=== PATIENT | male | born 1955 | race Two or more races ===

== ENCOUNTER → 2024-10-28 | Outpatient (CLI) | payer OTHER, MEDICAID, SELFPAY ==
--- NOTE | 2024-10-28 15:09 | XR_ITS ---
Examination: Shoulder,left, 3 views Technique: Shoulder AP internal rotation, AP external rotation, Y view shoulder, 3 views Exam date and time :October 28, 2024 1550 hours INDICATIONS: Patient fell one month ago with injury to the shoulder, shoulder pain. FINDINGS: Moderate osteopenia. No shoulder fracture or dislocation Mild narrowing glenohumeral joint IMPRESSION: No shoulder fracture or dislocation
== END | disposition home or self-care (01) ==
LOC: CDIM 14:29
PROVIDERS: PCP Family Medicine; Referring Provider Family Medicine; Visit Provider Family Medicine
DX: S49.92XA Unspecified injury of left shoulder and upper arm, initial encounter (principal); W19.XXXA Unspecified fall, initial encounter
CPT/HCPCS: 73030

== ENCOUNTER 2025-02-17 12:45 | Inpatient (IN) | payer OTHER, MEDICAID, MEDICARE, SELFPAY ==
[2025-02-17 13:22] VITALS: BP 145/78; PULSE 80; RESP 20; TEMP 36.9; O2SAT 99
--- NOTE | 2025-02-17 13:27 | XR_ITS ---
Examination: CT abdomen and pelvis without contrast. Coronal 3-D reconstructions. Sagittal 2-D reconstructions. Date and time of exam:February 17, 2025 1328 hours INDICATIONS: Rectal pain beginning 3 days ago COMPARISON: July 09, 2014 CTDI: vol (mGy): 9.43 DLP: (mGycm): 604 Technique: Axial images of the abdomen have been obtained, 3 mm slice thickness Intravenous contrast material has not been administered. Low dose protocols were performed. One or more of the following dose reduction techniques were used; automated exposure control, adjustment of the mA and/or KV according to patient size, use of iterative reconstruction technique. Findings: No focal liver or splenic lesions Gallstones No pancreatic or adrenal mass No renal or ureteral calculi, no hydronephrosis Aorta normal size No periappendiceal inflammatory change Colonic diverticulosis, no diverticulitis Urinary bladder wall is thickened up to 4 mm No significant prostatomegaly Diffuse thickening of the rectal wall with perirectal inflammatory change Moderate osteopenia IMPRESSION: Diffuse thickening of the rectal wall with perirectal inflammatory change, differential would include proctitis, rectal tumor not excluded, recommend direct inspection
--- NOTE | 2025-02-17 13:27 | PD.EDRME ---
Rapid Medical Screening Exam RME Arrival date/time: 02/17/25 12:45 69-year-old male with no known medical history presents to the emergency room with a chief complaint of rectal pain and bleeding x 4 days. I have greeted and performed a focused initial assessment of this patient. A comprehensive ED assessment and evaluation of the patient, analysis of all test results, and completion of the medical decision making process will be conducted by additional ED providers. Chief Complaint: General Adult/Misc Complain Time Seen by Provider: 02/17/25 13:07 Vital signs: Vital Signs Temperature 98.5 F 02/17/25 13:22 Pulse Rate 80 02/17/25 13:22 Respiratory Rate 20 02/17/25 13:22 Blood Pressure 145/78 H 02/17/25 13:22 Pulse Oximetry (%) 99 02/17/25 13:22 Oxygen Delivery Method Room Air 02/17/25 13:22 Vital signs reviewed by provider: No
[2025-02-17 13:51] LABS: Basophils % (Auto) 0 % (0-2.5); Eosinophils # (Auto) 0.1 Thou/mm3 (0.0-0.5); Eosinophils % (Auto) 0 % (0-10); Hematocrit 42.6 % (41.0-53.0); Hemoglobin 14.6 g/dL (13.5-16.0); Immature Granulocytes % (Auto) 0 % (0-0); Immature Granulocytes Auto 0.07 Thou/mm3 (0.00-0.00); Lymphocytes # (Auto) 1.9 Thou/mm3 (1.0-4.8); Lymphocytes % (Auto) 12 % (10-50); Mean Corpuscular HGB Conc 34.3 g/dl (31.0-37.0); Mean Corpuscular Hemoglobin 30.8 pg (25.0-35.0); Mean Corpuscular Volume 90 fL (80-100); Monocytes # (Auto) 1.3 Thou/mm3 (0.0-0.8); Monocytes % (Auto) 8 % (0-12); Neutrophils # (Auto) 12.8 Thou/mm3 (1.8-7.7); Neutrophils % (Auto) 79 % (37-80); Nucleated Red Blood Cell % 0 /100 WBC (0); Platelet Count 270 Thou/mm3 (140-440); Red Blood Count 4.74 Miln/mm3 (4.50-5.90); White Blood Count 16.2 Thou/mm3 (3.8-10.6)
[2025-02-17 14:19] LABS: Alanine Aminotransferase 21 U/L (10-49); Albumin, Serum 4.7 gm/dL (3.4-4.8); Albumin/Globulin Ratio 1.7 (1.2-2.2); Alkaline Phosphatase 106 U/L (46-116); Anion Gap 12 (7-16); Aspartate Amino Transferase 14 U/L (0-34); BUN/Creatinine Ratio 15 Ratio (12-20); Bilirubin,Total 1.2 mg/dL (0.3-1.2); Blood Urea Nitrogen 16 mg/dL (9-23); Calcium 8.8 mg/dL (8.3-10.6); Calcium (Corrected) 8.8 mg/dL (8.5-10.1); Chloride 102 mMol/L (98-107); Creatinine (Component) 1.1 mg/dL (0.6-1.3); Globulin 2.8 gm/dL (2.3-3.5); Glucose 168 mg/dL (74-106); Lipase 36 U/L (12-53); Osmolality,Calculated 280 (275-295); Potassium 4.2 mMol/L (3.4-5.1); Sodium 138 mMol/L (136-145); Total Protein 7.5 gm/dL (5.7-8.2); eGFR > 60 See Note
[2025-02-17 15:29] LABS: Collection Type, Urine Clean Catch
[2025-02-17 15:38] LABS: Bilirubin,Urine Negative (Negative); Blood,Urine 1+ (Negative); Clarity,Urine Clear (Clear/Hazy); Color,Urine Yellow (Lt Yel-Yel); Glucose, Urine 2+ (Negative); Ketones,Urine Negative (Negative); Leukocyte Esterase,Urine Negative (Negative); Nitrite,Urine Negative (Negative); Protein,Urine 1+ (Neg - Trace); RBC,Urine 4 /hpf (0-3); Specific Gravity,Urine 1.023 (1.001-1.035); Squamous Epithelial Cell,Urine < 1 /hpf (0-5); Urobilinogen,Urine Negative mg/dL (0.0-1.0); WBC,Urine 2 /hpf (0-5)
[2025-02-17 18:10] VITALS: BP 103/68; PULSE 99; RESP 18; TEMP 37.7; O2SAT 96
--- NOTE | 2025-02-17 18:28 | PD.EDMALE ---
ED Male Genitalurinary RME/HPI General Chief complaint: General Adult/Misc Complain Stated complaint: RECTAL PAIN X 4 DAYS Time Seen by Provider: 02/17/25 13:07 Arrival date/time: 02/17/25 12:45 RME / HPI RME / HPI Narrative: 02/17/25 12:45 69-year-old male with no known medical history presents to the emergency room with a chief complaint of rectal pain and bleeding x 4 days. I have greeted and performed a focused initial assessment of this patient. A comprehensive ED assessment and evaluation of the patient, analysis of all test results, and completion of the medical decision making process will be conducted by additional ED providers. This section includes all my notes and documentations, including HPI, PE, and ED course. Jefferson Guallpa MD HPI: 69 y/o male presents to ED c/o rectal pain x 3 days. Patient describes rectum as feeling heavy and not being able to walk due to pain. Equivocal subjective fever. No abdominal pain. Eating normally. Occasional nausea. No other complaints. ROS: All negative except as documented in HPI. Physical Exam: General: Alert and oriented. No acute distress when remaining still. Eyes: Conjunctivae and lids clear. ENT: No nasal congestion. Neck: Supple. Heart: RRR. Lungs: No respiratory distress. Good air movement. No rhonchi, wheezing, rales. Abdomen: Soft and nontender. Normal bowel sounds. No distension. No rebound or guarding. Skin: Warm and dry. Neuro: Alert and oriented X 3. Rectal: Normal external exam. Digital exam is normal with no hemorrhoids or masses. I reviewed all diagnostic test results. My review of the CT report is diffuse thickening of the rectal wall with perirectal inflammatory change, differential would include proctitis, rectal tumor not excluded. Blood tests and urine tests remarkable for WBC 16.2. At this point, diagnoses include Proctitis. Treatment here included Zofran, Metronidazole, Ciprofloxacin, Tylenol with Codeine Significant improvement noted. Recommended more outpatient care. Based on my best medical judgment, made decision no further evaluation or treatment indicated at this time. Patient understands and agrees to the discharge instructions customized and printed, see below. Discharge Instructions from Dr. Guallpa printed for you: 1. We are extremely sorry you waited so long for your care. You presented around 1 PM and I came to work at 6 PM. Previous provider entered orders for diagnostic tests. 2. After exam and reviewing the diagnostic test results, there is no emergency such as appendicitis needing urgent surgery. Or any condition needing emergent colonoscopy. 3. Your symptoms are due to proctitis, infection/inflammation of the rectum. 4. Take Cipro and Flagyl for the infection. Prednisone to decrease inflammation. Zofran for nausea/vomiting. Tylenol with codeine for severe pain. 5. See a private doctor outside the ER on 02/19/2025 for recheck and further care. To make sure there is no serious intra-abdominal condition, ask for help with more investigation not available here in the ER. Such as EGD or scoping the stomach, colonoscopy or scoping the colon, and referral to see human resources benefits assistant. Ask to review all test results and official radiology reports, to make sure you receive all necessary follow-ups and monitoring. 6. Seek immediate medical care with worsening or with any concerns. Jefferson Guallpa MD Related Data Previous Rx's ?Medication ?Instructions ?Recorded acetaminophen 300 mg-codeine 30 mg 2 tab PO Q8H PRN pain #20 tabs 02/17/25 tablet ciprofloxacin HCl 500 mg tablet 500 mg PO BID #20 tabs 02/17/25 (Cipro) metronidazole 500 mg tablet 500 mg PO BID 10 days #20 tabs 02/17/25 ondansetron 4 mg disintegrating 4 mg PO TID PRN nausea and 02/17/25 tablet vomiting 30 days #10 tabs prednisone 50 mg tablet 50 mg PO QDAY 5 days #5 tabs 02/17/25 Allergies Allergy/AdvReac Type Severity Reaction Status Date / Time No Known Allergies Allergy Unverified 02/17/25 18:44 Review of Systems Review of Systems Systems Reviewed: All systems reviewed, normal except as documented Past Medical History Social History SMOKING STATUS: Never smoker ED Exam Narrative Physical exam: Refer to HPI above Course Quality Measures none Orders Category Date Time Status CT abdomen pelvis wo con Stat Exams 02/17/25 13:27 Completed CBC Stat Lab 02/17/25 13:41 Completed CMP [Comprehensive Metabolic Panel] Stat Lab 02/17/25 13:41 Completed Lipase Stat Lab 02/17/25 13:41 Completed UA [Urinalysis] Stat Lab 02/17/25 15:19 Completed Urine Culture Stat Lab 02/17/25 15:19 Received ACETAMINOPHEN w/COD 300-30 [Tylenol w/Cod #3] Med 02/17/25 18:42 Discontinued 2 tab PO X1 ONE Ciprofloxacin HCl [Ciprofloxacin] Med 02/17/25 18:42 Discontinued 500 mg PO X1 ONE Ondansetron Odt [Zofran Odt] Med 02/17/25 18:42 Discontinued 4 mg PO X1 ONE metroNIDAZOLE [Flagyl] Med 02/17/25 18:42 Discontinued 500 mg PO X1 ONE Vital Signs Vital signs: Vital Signs Temperature 98.5 F 02/17/25 13:22 Pulse Rate 80 02/17/25 13:22 Respiratory Rate 20 02/17/25 13:22 Blood Pressure 145/78 H 02/17/25 13:22 Pulse Oximetry (%) 99 02/17/25 13:22 Oxygen Delivery Method Room Air 02/17/25 13:22 Urogenital - Male MDM Narrative MDM Narrative:: Scribe Attestation: IOdalis, am scribing for and in the presence of Dr. Guallpa. Provider Notation: Although this document has been carefully reviewed, there may still be some phonetic and other typographical errors.? These errors are purely grammatical due to imperfections in the software program and should not be construed in any way to? compromise the substance of the patient's medical care during this visit. 69 y/o male presents to ED c/o rectal pain, vomiting, and dizziness x 3 days. Patient describes rectum as feeling heavy and not being able to walk. Patient's temperature has been staying down in the low 90's. Denies cough, fever, or abdominal pain. No other complaints. Patient data External records reviewed:: [facility] previous records (No prior ED records available for review.) Clinical information provided by:: patient and family (Daughter) Social determinants that could affect healthcare access:: none Patient has the following chronic illnesses:: None reported How is presenting disease/condition affected by chronic disease/condition?: no chronic disease Evaluation data The following diagnostics were reviewed and interpreted by me:: lab results and radiology exam(s) Lab and/or radiology exams considered but not ordered:: None Interpretation Summary: I reviewed all diagnostic test results. My review of the CT report is diffuse thickening of the rectal wall with perirectal inflammatory change, differential would include proctitis, rectal tumor not excluded. Blood tests and urine tests remarkable for WBC 16.2. Medications / Prescriptions Medications or Prescriptions considered but not ordered:: None Medication administrations:: Medication Administration History Discontinued Medications Acetaminophen/Codeine Phosphate (Acetaminophen W/Cod 300-30 Tablet) 2 tab PO X1 ONE Stop: 02/17/25 18:43 Ciprofloxacin (Ciprofloxacin Hcl 250 Mg Tablet) 500 mg PO X1 ONE Stop: 02/17/25 18:43 Metronidazole (Metronidazole 250 Mg Tablet) 500 mg PO X1 ONE Stop: 02/17/25 18:43 Ondansetron HCl (Ondansetron Odt 4 Mg Tabrap) 4 mg PO X1 ONE; Protocol Stop: 02/17/25 18:43 Zofran, Metronidazole, Ciprofloxacin, Tylenol with Codeine Consultations Consultation(s) initiated? (list below): No Diagnosis Urogenital Male Differential Diagnosis: urinary tract infection, prostatitis and other (Anal fissure, Hernia, Anal fistula, hemorrhoids) Most likely diagnosis given after review of the tests above:: Proctitis Admission Indicated Admission indicated?: not indicated Explain why admission is indicated or not indicated:: With significant improvement, there was no indication for admission. Admission Request Was there a request for admission?: No Disposition Plan Disposition Plan: Discharge Discharge Attestation Discharge Attestation: The patient and all family members were given an opportunity to ask questions and understood the discharge instructions. Discharge instructions specifically effects, indications for sooner follow up or return to the emergency department, and the expected course of current diagnosis. Patient condition: Stable Discharge Plan Plan Patient Disposition: HOME (Self Care) Prescriptions/Referrals Prescriptions/Med Rec: New metronidazole 500 mg tablet 500 mg PO BID 10 Days Qty: 20 0RF acetaminophen-codeine 300-30 mg tablet 2 tab PO Q8H MDD 6 PRN (Reason: pain) Qty: 20 0RF ciprofloxacin HCl [Cipro] 500 mg tablet 500 mg PO BID Qty: 20 0RF ondansetron 4 mg tablet,disintegrating 4 mg PO TID PRN (Reason: nausea and vomiting) 30 Days Qty: 10 0RF prednisone 50 mg tablet 50 mg PO QDAY 5 Days Qty: 5 0RF Referrals: No Primary/Family,Physician [Primary Care Provider] - In 1 week Problem List Clinical Impression: Proctitis Patient/Caregiver Discharge Instructions Discharge Activity: activity as tolerated Education Materials: ED Crohn's Disease, ED Ulcerative Colitis Additional Instructions: Discharge Instructions from Dr. Guallpa printed for you: 1. We are extremely sorry you waited so long for your care. You presented around 1 PM and I came to work at 6 PM. Previous provider entered orders for diagnostic tests. 2. After exam and reviewing the diagnostic test results, there is no emergency such as appendicitis needing urgent surgery. Or any condition needing emergent colonoscopy. 3. Your symptoms are due to proctitis, infection/inflammation of the rectum. 4. Take Cipro and Flagyl for the infection. Prednisone to decrease inflammation. Zofran for nausea/vomiting. Tylenol with codeine for severe pain. 5. See a private doctor outside the ER on 02/19/2025 for recheck and further care. To make sure there is no serious intra-abdominal condition, ask for help with more investigation not available here in the ER. Such as EGD or scoping the stomach, colonoscopy or scoping the colon, and referral to see human resources benefits assistant. Ask to review all test results and official radiology reports, to make sure you receive all necessary follow-ups and monitoring. 6. Seek immediate medical care with worsening or with any concerns. Instrucciones de hernandez del Dr. Guallpa, impresas para usted: 1. Lamentamos mucho que haya esperado tanto tiempo para recibir atenci?n. Se present? alrededor de la 1 p. m. y yo llegu? a trabajar a las 6 p. m. El m?dico anterior solicit? pruebas diagn?sticas. 2. Tras el examen y la revisi?n de los resultados de las pruebas diagn?sticas, no se observa ninguna emergencia, lona apendicitis que requiera cirug?a urgente, ni ninguna afecci?n que requiera roxana colonoscopia de emergencia. 3. [place] s?ntomas se deben a proctitis o infecci?n/inflamaci?n del recto. 4. [place] Ciprofloxacino y Flagyl para la infecci?n. Prednisona para disminuir la inflamaci?n. Zofr?n para las n?useas/v?mitos. Tylenol con code?na para el dolor intenso. 5. Consulte con un m?dico privado fuera de urgencias el 19/02/2025 para roxana revisi?n y atenci?n adicional. Para asegurarse de que no haya roxana afecci?n intraabdominal grave, solicite ayuda con otras pruebas que no est?n disponibles en urgencias. [place] roxana endoscopia estomacal (EGD) o roxana endoscopia g?strica, roxana colonoscopia o roxana endoscopia de colon, y la derivaci?n a un gastroenter?logo. Solicite la revisi?n de todos los resultados de las pruebas y los informes radiol?gicos oficiales para asegurarse de recibir todos los seguimientos y la monitorizaci?n necesarios. 6. Busque atenci?n m?dica inmediata si presenta empeoramiento o cualquier inquietud. Print Language: Bel[place]ian Stand Alone Forms: [employer] Info., Patient Portal Info Letter
[2025-02-17] MEDS: ONDANSETRON ODT 4 MG TABRAP PO (18:49)
[2025-02-17] MEDS: ACETAMINOPHEN w/COD 300-30 TABLET 2 TAB PO (18:50)
[2025-02-17] MEDS: CIPROFLOXACIN HCL 250 MG TABLET 500 MG PO (18:52)
[2025-02-17] MEDS: metroNIDAZOLE 250 MG TABLET 500 MG PO (18:55)
[2025-02-17] MEDS: SODIUM CHLORIDE 0.9% 1000 ML 1,000 ML 999 ML IV (19:08)
[2025-02-17 19:55] VITALS: BP 146/80; PULSE 99; RESP 18; TEMP 39.1; O2SAT 96
[2025-02-17 20:07] VITALS: TEMP 39.1
[2025-02-17] MEDS: KETOROLAC INJ 30 MG/ML VIAL IVP (20:07)
[2025-02-17] MEDS: MethylPREDNISolone SOD SUCC 62.5 MG/ML 2ML VIAL 125 MG IVP (20:07)
--- NOTE | 2025-02-17 20:15 | PD.EDADDENDU ---
Emergency Room Addendum Addendum Narrative: After I officially discharged the patient, patient developed a fever of 102.3 ?F. I discussed the case with our polysomnography technologist and our hospitalist.? About the presentation and exam and diagnostics and treatments here.? And need of further care in the hospital.? Will accept the patient. Jefferson Guallpa MD
--- NOTE | 2025-02-17 20:55 | PD.RESHP ---
Documentation for date of: 02/17/25 HPI History of Present Illness Chief complaint: Rectal Pain History of present illness: Mr. Donald is a 69-year-old male with past medical history of type 2 diabetes, hypertension, hyperlipidemia, chronic joint pain who presented to [facility] with a chief complaint of rectal pain. Patient states that he began to feel ill last Saturday with subjective fevers and chills along with pain being seated. He states that he saw his primary care physician Dr. Santillan who prescribed him ciprofloxacin but he continued to have subjective fevers and chills with decreased p.o. intake. He also endorsed weakness and dizziness. He denied any recent sick contacts, recent travel, changes in diet, changes in water sources, any previous history of cancer in his family. He states that his last colonoscopy was more than 10 years ago and was normal. He also states that he is having some pain near his penile region when he experiences discomfort such as cough or throat clearing. He denies any chest pain, shortness of breath, headache, burning micturition, or any other associated symptoms. 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 Denies any recreational drug use or alcohol use. Does not require assistance with ADLs Family history: None relevant family history other than diabetes in both parents and arthritis in mom Allergies: No known drug allergies ED vitals: BP 146/80, pulse 99, RR 18, temp 102.3, O2 sat 96 on room air ED labs: WBC 16.2, absolute neutrophil count 12.8 thousand, glucose 168. U/A: 1+ protein, 2+ glucose, 1+ blood and 4 RBCs ED imaging: CT abdomen pelvis reveals diffuse thickening of the rectal wall with perirectal inflammatory change with concern for proctitis ED management:Zofran 4 mg p.o. x 1, acetaminophen codeine 2 tabs p.o. x 1, Cipro and Flagyl 500 mg p.o. x 1, NS 1 L bolus methylprednisolone 125 mg IV push x 1, ketorolac 30 mg IV push x 1, Patient is to be admitted to [facility] for the management of proctitis likely infectious in etiology Review of Systems Review of Systems Systems Reviewed: All systems reviewed, normal except as documented Exam Vital Signs Temp Pulse Resp BP Pulse Ox O2 Del Method 102.3 F H 99 18 146/80 H 96 Room Air 02/17/25 20:07 02/17/25 19:55 02/17/25 19:55 02/17/25 19:55 02/17/25 19:55 02/17/25 19:55 Narrative Exam GENERAL: Alert and oriented x 3. Turkmen-speaking with mild acute distress. Well-nourished. EYES: EOMI. Anicteric. HEENT: Moist mucous membranes. No scleral icterus. No cervical lymphadenopathy. LUNGS: Clear to auscultation bilaterally. No accessory muscle use. CARDIOVASCULAR: Regular rate and rhythm. No murmur. No JVD. ABDOMEN: Soft, non-tender and non-distended. No palpable masses. EXTREMITIES: All 4 extremeties intact. No edema. Nontender. SKIN: No rashes or lesions. Warm. NEUROLOGIC: No focal neurological deficits. CN II-XII grossly intact, but not individually tested. PSYCHIATRIC: Cooperative. Appropriate mood and affect. Results: Labs 02/17/25 13:41 02/17/25 13:41 Labs: Short CBC 02/17/25 Range/Units 13:41 WBC 16.2 H (3.8-10.6) Thou/mm3 Hgb 14.6 (13.5-16.0) g/dL Hct 42.6 (41.0-53.0) % Plt Count 270 (140-440) Thou/mm3 BMP 02/17/25 13:41 Sodium 138 Potassium 4.2 Chloride 102 Carbon Dioxide 24.0 BUN 16 Creatinine 1.1 Glucose 168 H Calcium 8.8 Liver Function 02/17/25 Range/Units 13:41 Total Bilirubin 1.2 (0.3-1.2) mg/dL AST 14 (0-34) U/L ALT 21 (10-49) U/L Alkaline Phosphatase 106 (46-116) U/L Albumin 4.7 (3.4-4.8) gm/dL Urine 02/17/25 Range/Units 15:19 Urine Color Yellow (Lt Yel-Yel) Urine Clarity Clear (Clear/Hazy) Urine pH 6.0 (5.0-7.0) Ur Specific [place] 1.023 (1.001-1.035) Urine Protein 1+ A (Neg - Trace) Urine Glucose (UA) 2+ A (Negative) Quality Measures Quality Measures none Advance care planning discussed with:: patient Medications Home Medications and Allergies Allergies Allergy/AdvReac Type Severity Reaction Status Date / Time No Known Allergies Allergy Unverified 02/17/25 18:44 Visit Medications Acetaminophen (Acetaminophen 325 Mg Tablet) 650 mg PO Q6H PRN PRN Reason: Fever >101.5 Stop: 03/19/25 20:49 Acetaminophen (Acetaminophen 325 Mg Tablet) 650 mg PO Q6H PRN PRN Reason: PAIN SCALE 1-3 (mild Stop: 03/19/25 20:49 Hydrocodone Bitart/Acetaminophen (Hydrocodone/Apap 5/325 Tablet) 1 tab PO Q4HR PRN PRN Reason: PAIN SCALE 4-10(Mod-Sev Stop: 02/22/25 20:49 Enoxaparin Sodium (Enoxaparin Sod Inj 40 Mg/0.4 Ml Syringe) 40 mg SC QDAY DEDE Stop: 03/04/25 08:59 Ciprofloxacin/Dextrose (Cipro Ivpb) 200 mg in 100 mls @ 100 mls/hr IV Q12HR DEDE Stop: 02/25/25 08:59 Metronidazole (Flagyl 500 Mg Iv) 500 mg in 100 mls @ 200 mls/hr IV Q8HR DEDE Stop: 02/24/25 20:07 Lactated Ringer's (Lactated Ringers) 1,000 mls @ 75 mls/hr IV .[id number] DEDE Stop: 03/19/25 20:59 Lactated Ringer's (Lactated Ringers) 1,000 mls @ 999 mls/hr IV .Q1H1M ONE Stop: 02/17/25 21:53 Ondansetron HCl (Ondansetron Inj 2 Mg/Ml Inj 2 Ml) 4 mg IVP Q6H PRN; Protocol PRN Reason: NAUSEA OR VOMITING Stop: 03/19/25 20:49 Pantoprazole Sodium (Pantoprazole Inj 40 Mg Vial) 40 mg IVP QDAY DEDE Stop: 03/20/25 08:59 Discontinued Medications Acetaminophen/Codeine Phosphate (Acetaminophen W/Cod 300-30 Tablet) 2 tab PO X1 ONE Stop: 02/17/25 18:43 Last Admin: 02/17/25 18:50 Dose: 2 tab Ciprofloxacin (Ciprofloxacin Hcl 250 Mg Tablet) 500 mg PO X1 ONE Stop: 02/17/25 18:43 Last Admin: 02/17/25 18:52 Dose: 500 mg Sodium Chloride (Ns) 1,000 mls @ 999 mls/hr IV .Q1H1M ONE Stop: 02/17/25 20:01 Last Infusion: 02/17/25 20:02 Dose: Infused Ketorolac Tromethamine (Ketorolac Inj 30 Mg/Ml Vial) 30 mg IVP X1 ONE Stop: 02/17/25 19:57 Last Admin: 02/17/25 20:07 Dose: 30 mg Methylprednisolone Sodium Succinate (Methylprednisolone Sod Succ 62.5 Mg/Ml 2ml Vial) 125 mg IVP X1 ONE Stop: 02/17/25 19:57 Last Admin: 02/17/25 20:07 Dose: 125 mg Metronidazole (Metronidazole 250 Mg Tablet) 500 mg PO X1 ONE Stop: 02/17/25 18:43 Last Admin: 02/17/25 18:55 Dose: 500 mg Ondansetron HCl (Ondansetron Odt 4 Mg Tabrap) 4 mg PO X1 ONE; Protocol Stop: 02/17/25 18:43 Last Admin: 02/17/25 18:49 Dose: 4 mg Assessment & Plan Plan #Rectal proctitis #Leukocytosis Patient has been complaining of rectal pain for more than 1 week and failed outpatient antibiotic therapy with ciprofloxacin solo agent GI consulted who recommended that the patient is admitted for observation and to obtain a FOBT along with further stool studies including stool calprotectin and stool culture/WBCs Patient has a left shift with absolute neutrophil count of 12.8 thousand and a fever of 102.3 with only source being the rectal proctitis noted on digital rectal exam and CT abdomen pelvis Will initiate the patient on ciprofloxacin and Flagyl. Patient received 125 mg of methylprednisolone in the ED IV push x 1 Will give adequate IV fluid resuscitation Pain management in place Clear liquid diet Wait for FOBT, consider colonoscopy if positive. If patient does not receive inpatient colonoscopy recommend outpatient follow-up with colonoscopy #Type 2 diabetes Patient takes metformin 1000 mg p.o. twice daily Will initiate the patient on sliding scale insulin #Hypertension #Proteinuria Patient takes enalapril 2.5 mg p.o. daily Will resume the patient's home medication #Hyperlipidemia Resume patient's simvastatin 20 mg p.o. at bedtime #Osteoarthritis Patient takes meloxicam 15 mg p.o. twice daily Will hold the medication currently and order inpatient pain regimen Health Maintenance: DVT prophylaxis: Lovenox 40 mg subcutaneous daily GI prophylaxis: Protonix 40 IV daily Diet: Clear liquid diet Mike: Not indicated Lines: Peripheral IVs Supplemental O2: None CODE STATUS: Full code Disposition: Admitted to observation status on MedSurg for further management of rectal proctitis Plan of care discussed with supervising attending Valarie Moreland M.D. PGY-3 Attending Provider Attestation/Addendum I have examined the patient, reviewed labs and imaging findings, discussed the case with the resident(s), and reviewed entered orders. I agree with the plan of care as outlined in this note, with these additional summaries/recommendations: After examination of the patient and review of the clinical data, I feel that this patient needs admission to the hospital for further treatment and evaluation. Patient is a 69-year-old male with a medical history of hyperlipidemia, diabetes mellitus type 2, primary hypertension, and arthritis who presents to [facility] emergency department on 02/17/2025 with chief complaints of rectal pain and subjective fevers. Patient and daughter seen at bedside. Nurse had just taken patient's temperature and Tmax 102.3 Fahrenheit. Discussed with patient that CT abdomen and pelvis showed diffuse thickening of the rectal wall with perirectal inflammatory changes with differentials including proctitis (infectious vs inflammatory) vs rectal tumor. Given that patient has fever and leukocytosis to 16.2 most likely etiology is infectious. Case discussed with gastroenterology who recommends admission for IV antibiotics. Order blood cultures. Order stool studies. Order FOBT. Start Clear liquid diet. Pain management as needed. Patient denies any recent travel, sick contacts, and no exposure to fresh water lakes. He reports his last colonoscopy was over 10 years ago and was normal at that time. He denies any family history of colon cancer. Start insulin sliding scale for diabetes mellitus type 2 with Accu-Cheks. Order A1c. Resume home antihypertensives and statin as tolerated. Patient and daughter updated on the plan and in agreement. All questions answered to satisfaction. Please see residents note for additional details and management. Dr. Sherman MD
[2025-02-17 20:56] VITALS: TEMP 37.2
[2025-02-17] MEDS: RINGERS LACTATED 1000 ML 1,000 ML 999 ML IV (20:58)
[2025-02-17 21:22] LABS: Lactate (Lactic Acid) 1.5 mMol/L (0.4-2.0)
[2025-02-17] MEDS: metroNIDAZOLE/NS 500 MG IVPB 500 MG/100 ML BAG 200 MG IV (21:22)
[2025-02-17 21:23] LABS: Sed Rate (ESR) 51 mm/hr (0-20)
[2025-02-17 21:47] LABS: C-Reactive Protein 13.8 mg/dL (0.0-0.9); Procalcitonin 0.09 ng/ml (0.0-0.49)
[2025-02-17 22:13] VITALS: BP 139/77; PULSE 78; RESP 26; TEMP 36.7; O2SAT 96
[2025-02-17 22:24] VITALS: BMI 31.8
[2025-02-17 23:15] VITALS: BMI 31.9
[2025-02-18] VITALS (7 sets, daily range): BP systolic 109–136; BP diastolic 56–74; PULSE 63–77; RESP 18; TEMP 35.7–36.9; O2SAT 94–99; BMI 32.7
[2025-02-18] MEDS: RINGERS LACTATED 1000 ML 1,000 ML 75 ML IV ×2 (00:08→11:46)
[2025-02-18] MEDS: metroNIDAZOLE/NS 500 MG IVPB 500 MG/100 ML BAG 200 MG IV ×3 (05:41→22:09)
[2025-02-18 06:16] LABS: Basophils % (Auto) 0 % (0-2.5); Eosinophils % (Auto) 0 % (0-10); Hematocrit 37.9 % (41.0-53.0); Hemoglobin 13.2 g/dL (13.5-16.0); Immature Granulocytes % (Auto) 2 % (0-0); Immature Granulocytes Auto 0.24 Thou/mm3 (0.00-0.00); Lymphocytes # (Auto) 0.8 Thou/mm3 (1.0-4.8); Lymphocytes % (Auto) 5 % (10-50); Mean Corpuscular HGB Conc 34.8 g/dl (31.0-37.0); Mean Corpuscular Hemoglobin 31.2 pg (25.0-35.0); Mean Corpuscular Volume 90 fL (80-100); Monocytes # (Auto) 0.2 Thou/mm3 (0.0-0.8); Monocytes % (Auto) 2 % (0-12); Neutrophils # (Auto) 14.5 Thou/mm3 (1.8-7.7); Neutrophils % (Auto) 92 % (37-80); Nucleated Red Blood Cell % 0 /100 WBC (0); Platelet Count 248 Thou/mm3 (140-440); Red Blood Count 4.23 Miln/mm3 (4.50-5.90); White Blood Count 15.8 Thou/mm3 (3.8-10.6)
[2025-02-18 06:20] LABS: Alanine Aminotransferase 16 U/L (10-49); Albumin, Serum 4.1 gm/dL (3.4-4.8); Albumin/Globulin Ratio 1.6 (1.2-2.2); Alkaline Phosphatase 95 U/L (46-116); Anion Gap 12 (7-16); Aspartate Amino Transferase 11 U/L (0-34); BUN/Creatinine Ratio 15 Ratio (12-20); Bilirubin,Total 0.9 mg/dL (0.3-1.2); Blood Urea Nitrogen 15 mg/dL (9-23); Calcium 8.5 mg/dL (8.3-10.6); Calcium (Corrected) 8.5 mg/dL (8.5-10.1); Carbon Dioxide 23.2 mMol/L (20.0-31.0); Chloride 103 mMol/L (98-107); Estimated Creatinine Clearance 76.1 mL/min (>60); Globulin 2.6 gm/dL (2.3-3.5); Glucose 284 mg/dL (74-106); Osmolality,Calculated 286 (275-295); Phosphorous 2.8 mg/dL (2.4-5.1); Potassium 4.1 mMol/L (3.4-5.1); Sodium 138 mMol/L (136-145); Total Protein 6.7 gm/dL (5.7-8.2); eGFR > 60 See Note
[2025-02-18] MEDS: PANTOPRAZOLE INJ 40 MG VIAL IVP (08:35)
[2025-02-18] MEDS: CIPROFLOXACIN/D5w 400 MG IVPB 400 MG/200 ML BAG 200 MG IV ×2 (08:35→20:37)
--- NOTE | 2025-02-18 09:17 | PD.IMCONS ---
HPI Data of Consult Requesting Physician: Alcides Whitaker MD Primary Care Provider: Physician No Primary/Family Consult Narrative Reason for consult: Rectal pain, leukocytosis, abnormal CTAP History of present illness: 69 years old male came into the emergency room with severe rectal pain Pain was so severe he could not even sit Laboratory workup showed WBC count of 16.2 hemoglobin hematocrit 14.6 and 42.6 which subsequently dropped to 13.[address] scan of the abdomen pelvis without contrast showed inflammatory changes in the rectum suggestive of proctitis or infiltrating tumor Patient was subsequently admitted cc:: cc: Alcides Whitaker MD Review of Systems Review of Systems Systems Reviewed: All systems reviewed, normal except as documented Past Medical History Surgical History OTHER SURGICAL HX: Diabetes mellitus type 2 Essential hypertension Hyperlipidemia Meds Home Medications and Allergies Home Medications ?Medication ?Instructions ?Recorded ?Confirmed ?Type enalapril maleate 2.5 mg tablet 2.5 mg PO AC 02/17/25 02/17/25 History meloxicam 15 mg tablet 15 mg PO DAILY 02/17/25 02/17/25 History metformin 1,000 mg tablet 1,000 mg PO BID 02/17/25 02/17/25 History simvastatin 20 mg tablet 20 mg PO DAILY 02/17/25 02/17/25 History Allergies Allergy/AdvReac Type Severity Reaction Status Date / Time No Known Allergies Allergy Unverified 02/17/25 18:44 Exam Vital Signs Temp Pulse Resp BP Pulse Ox O2 Del Method 97.3 F 75 18 136/71 H 98 Room Air 02/18/25 04:00 02/18/25 04:00 02/18/25 04:00 02/18/25 04:00 02/18/25 04:00 02/18/25 04:00 Constitutional Comments: Alert oriented Routine Respiratory Exam Comments: Normal to auscultation Routine Abdominal Exam Comments: Lower abdominal tenderness positive bowel sounds Results Labs 02/18/25 05:21 02/18/25 05:21 Labs: Short CBC 02/17/25 02/18/25 Range/Units 13:41 05:21 WBC 16.2 H 15.8 H (3.8-10.6) Thou/mm3 Hgb 14.6 13.2 L (13.5-16.0) g/dL Hct 42.6 37.9 L (41.0-53.0) % Plt Count 270 248 (140-440) Thou/mm3 BMP 02/17/25 02/18/25 13:41 05:21 Sodium 138 138 Potassium 4.2 4.1 Chloride 102 103 Carbon Dioxide 24.0 23.2 BUN 16 15 Creatinine 1.1 1.0 Glucose 168 H 284 H D Calcium 8.8 8.5 Liver Function 02/17/25 02/18/25 Range/Units 13:41 05:21 Total Bilirubin 1.2 0.9 (0.3-1.2) mg/dL AST 14 11 (0-34) U/L ALT 21 16 (10-49) U/L Alkaline Phosphatase 106 95 (46-116) U/L Albumin 4.7 4.1 D (3.4-4.8) gm/dL Urine 02/17/25 Range/Units 15:19 Urine Color Yellow (Lt Yel-Yel) Urine Clarity Clear (Clear/Hazy) Urine pH 6.0 (5.0-7.0) Ur Specific [place] 1.023 (1.001-1.035) Urine Protein 1+ A (Neg - Trace) Urine Glucose (UA) 2+ A (Negative) Assessment and Plan Additional Assessment & Plan Additional Plan: # Leukocytosis with abnormal CT scan of the abdomen pelvis showing inflammatory change in the region of the rectum differential diagnosis inflammatory versus infectious Plan Clear liquid diet Broad-spectrum antibiotics GoLytely prep Consent obtained for fiberoptic colonoscopy with possible biopsies possible therapeutic intervention under intravenous moderate sedation scheduled for a.m. Other medical problems include diabetes mellitus type 2 essential hypertension Hyperlipidemia Thank you very much for the opportunity to participate in care of this patient
--- NOTE | 2025-02-18 11:11 | ESPR_ITS ---
<Statement entered by Raine Archuleta MD - 02/22/25 14:42> I reviewed above note and agree with findings and plans. I have also personally examined the patient with medicine team and went over assessment and plan with medical team including internal sales and resident physician. Documentation for date of: 02/18/25 Subjective Subjective Interval history: Overnight admission. Patient seen and examined at bedside and states that he experiences rectal pain when he coughs. Otherwise, no other complaints at this time. He is resting comfortably on his bed, vital signs stable with no fever and on room air. Continues to have mild leukocytosis, hemoglobin stable, CHEM panel unremarkable. Will await for further recs from GI. Exam Vital Signs Temp Pulse Resp BP Pulse Ox O2 Del Method 96.2 F L 64 18 112/61 94 L Room Air 02/18/25 08:00 02/18/25 08:00 02/18/25 08:00 02/18/25 08:00 02/18/25 08:00 02/18/25 08:00 Narrative Exam General: AOx3, no acute distress, able to speak full sentences HEENT: NC/AT, mucous membranes moist, bilateral sclera anicteric Cardiovascular: regular rate and rhythm, S1/S2 present, no murmurs appreciated Pulmonary: clear to auscultation bilaterally, no rales/rhonchi/wheezes Abdominal: soft, non-tender, non-distended, no rebound/guarding, normal bowel sounds present Musculoskeletal: normal ROM, no peripheral edema Skin: warm and dry, intact, no rashes Neuro: CN II-XII intact, no focal deficits Objective Labs 02/18/25 05:21 02/18/25 05:21 Labs: Laboratory Results - last 24 hr 02/17/25 02/17/25 02/17/25 13:41 15:19 21:05 WBC 16.2 H RBC 4.74 Hgb 14.6 Hct 42.6 MCV 90 MCH 30.8 MCHC 34.3 RDW Std Deviation 39.0 Plt Count 270 Neut % (Auto) 79 Lymph % (Auto) 12 [place] % (Auto) 8 Eos % (Auto) 0 Baso % (Auto) 0 Neut # (Auto) 12.8 H Lymph # (Auto) 1.9 [place] # (Auto) 1.3 H Eos # (Auto) 0.1 Baso # (Auto) 0.0 Immature Gran # (Auto) 0.07 H Absolute Nucleated RBC 0.00 Immature Gran % 0 Nucleated RBC % 0 ESR 51 H Sodium 138 Potassium 4.2 Chloride 102 Carbon Dioxide 24.0 Anion Gap 12 BUN 16 Creatinine 1.1 Estim Creat Clear Calc Not Performed. eGFR > 60 BUN/Creatinine Ratio 15 Glucose 168 H Calculated Osmolality 280 Lactic Acid 1.5 Calcium 8.8 Corrected Calcium 8.8 Phosphorus Magnesium Total Bilirubin 1.2 AST 14 ALT 21 Alkaline Phosphatase 106 C-Reactive Prot, Quant 13.8 H Total Protein 7.5 Albumin 4.7 Globulin 2.8 Albumin/Globulin Ratio 1.7 Lipase 36 Procalcitonin 0.09 Ur Collection Type Clean Catch Urine Color Yellow Urine Clarity Clear Urine pH 6.0 Ur Specific [place] 1.023 Urine Protein 1+ A Urine Glucose (UA) 2+ A Urine Ketones Negative Urine Blood 1+ A Urine Nitrite Negative Urine Bilirubin Negative Urine Urobilinogen (Auto) Negative Ur Leukocyte Esterase Negative Urine RBC 4 H Urine WBC 2 Ur Squamous Epith Cells < 1 Urine Bacteria None 02/18/25 05:21 WBC 15.8 H RBC 4.23 L Hgb 13.2 L Hct 37.9 L MCV 90 MCH 31.2 MCHC 34.8 RDW Std Deviation 38.0 Plt Count 248 Neut % (Auto) 92 H Lymph % (Auto) 5 L [place] % (Auto) 2 Eos % (Auto) 0 Baso % (Auto) 0 Neut # (Auto) 14.5 H Lymph # (Auto) 0.8 L [place] # (Auto) 0.2 Eos # (Auto) 0.0 Baso # (Auto) 0.0 Immature Gran # (Auto) 0.24 H Absolute Nucleated RBC 0.00 Immature Gran % 2 H Nucleated RBC % 0 ESR Sodium 138 Potassium 4.1 Chloride 103 Carbon Dioxide 23.2 Anion Gap 12 BUN 15 Creatinine 1.0 Estim Creat Clear Calc 76.1 eGFR > 60 BUN/Creatinine Ratio 15 Glucose 284 H D Calculated Osmolality 286 Lactic Acid Calcium 8.5 Corrected Calcium 8.5 Phosphorus 2.8 Magnesium 2.0 Total Bilirubin 0.9 AST 11 ALT 16 Alkaline Phosphatase 95 C-Reactive Prot, Quant Total Protein 6.7 Albumin 4.1 D Globulin 2.6 Albumin/Globulin Ratio 1.6 Lipase Procalcitonin Ur Collection Type Urine Color Urine Clarity Urine pH Ur Specific [place] Urine Protein Urine Glucose (UA) Urine Ketones Urine Blood Urine Nitrite Urine Bilirubin Urine Urobilinogen (Auto) Ur Leukocyte Esterase Urine RBC Urine WBC Ur Squamous Epith Cells Urine Bacteria Quality Measures Quality Measures none Advance care planning discussed with:: patient Assessment & Plan Assessment Current Active Medications: Generic Name Dose Route Start Last Admin Trade Name Freq PRN Reason Stop Dose Admin Acetaminophen 650 mg 02/17/25 20:50 Acetaminophen 325 Mg Tablet PO 03/19/25 20:49 Q6H PRN Fever >101.5 Acetaminophen 650 mg 02/17/25 20:50 Acetaminophen 325 Mg Tablet PO 03/19/25 20:49 Q6H PRN PAIN SCALE 1-3 (mild Hydrocodone Bitart/Acetaminophen 1 tab 02/17/25 20:50 Hydrocodone/Apap 5/325 Tablet PO 02/22/25 20:49 Q4HR PRN PAIN SCALE 4-10(Mod-Sev Atorvastatin Calcium 10 mg 02/18/25 21:00 Atorvastatin Calcium 10 Mg Tablet PO 03/20/25 20:59 HS DEDE Dextrose 25 ml 02/17/25 20:53 Dextrose 50%-Water Inj 50 Ml Syringe IV 03/19/25 20:52 Q15MIN PRN BG 50-70 responsive npo pt Dextrose 50 ml 02/17/25 20:53 Dextrose 50%-Water Inj 50 Ml Syringe IV 03/19/25 20:52 Q15MIN PRN BG <50 OR BG <70 & pt unresponsive Enoxaparin Sodium 40 mg 02/18/25 09:00 02/18/25 08:35 Enoxaparin Sod Inj 40 Mg/0.4 Ml Syringe SC 03/04/25 08:59 Not Given QDAY DEDE Glucagon 1 mg 02/17/25 20:53 Glucagon Inj 1 Mg Vial IM Q15MIN PRN BG <70, and no IV access Ciprofloxacin/Dextrose 400 mg in 200 mls @ 200 mls/hr 02/18/25 09:00 02/18/25 08:35 Cipro Ivpb IV 02/25/25 08:59 200 mls/hr Q12HR DEDE Administration Metronidazole 500 mg in 100 mls @ 200 mls/hr 02/17/25 20:08 02/18/25 05:41 Flagyl 500 Mg Iv IV 02/24/25 20:07 200 mls/hr Q8HR DEDE Administration Lactated Ringer's 1,000 mls @ 75 mls/hr 02/17/25 21:00 02/18/25 00:08 Lactated Ringers IV 03/19/25 20:59 75 mls/hr .[id number] DEDE Administration Insulin Human Lispro 0 unit 02/18/25 08:08 Insulin Lispro (Admelog) 1 Unit/0.01 Ml Unit SC 03/20/25 07:29 AC DEDE Protocol Lisinopril 5 mg 02/18/25 10:30 Lisinopril 2.5 Mg Tablet PO 03/20/25 10:29 QDAY DEDE Ondansetron HCl 4 mg 02/17/25 20:50 Ondansetron Inj 2 Mg/Ml Inj 2 Ml IVP 03/19/25 20:49 Q6H PRN NAUSEA OR VOMITING Protocol Pantoprazole Sodium 40 mg 02/18/25 09:00 02/18/25 08:35 Pantoprazole Inj 40 Mg Vial IVP 03/20/25 08:59 40 mg QDAY DEDE Administration Plan Yayo? Odilon is a 69-year-old male with a past medical history of type 2 diabetes mellitus, hypertension, hyperlipidemia, and osteoarthritis who presents with rectal and perennial pain for the last few days and admitted for management of proctitis as seen on imaging. #Rectal proctitis #Leukocytosis Endorses rectal pain for approximately a week with failed outpatient antibiotic therapy of ciprofloxacin. GI consulted, recommended to admit patient for observation and obtain FOBT and other stool studies (calprotectin, culture, WBCs). Admitted with leukocytosis, fever 102.3 ?F and the source likely proctitis as seen on imaging. Received methylprednisolone 125 mg x 1 in ED. ? GI following, appreciate recommendations ? Ciprofloxacin and Flagyl ? Pain management: [place] ? Clear liquid diet #Type 2 diabetes Patient takes metformin 1000 mg p.o. twice daily ? SSI ? Accu-Cheks ACHS ? Hypoglycemic protocol in place #Hypertension #Proteinuria Patient takes enalapril 2.5 mg p.o. daily ? Lisinopril 5 mg p.o. daily #Hyperlipidemia Patient states simvastatin 20 mg p.o. at bedtime ? Atorvastatin 10 mg p.o. at bedtime #Osteoarthritis Patient takes meloxicam 15 mg p.o. twice daily Will hold and order inpatient pain regimen Health maintenance: Disposition: Admitted to observation status on MedSurg for further management of rectal proctitis DVT prophylaxis: Lovenox 40 mg subcutaneous daily GI prophylaxis: Protonix 40 IV daily Diet: Clear liquid diet Miek: Not indicated Lines: Peripheral IVs Supplemental O2: None CODE STATUS: Full code ----- Plan discussed with attending physician Dr. Kathe Winters MD PGY-1 Internal Medicine
[2025-02-18] MEDS: NA SU/NAHCO3/KC/PEG (Golytely) 4,000 ML BTL 4000 ML PO (11:37)
[2025-02-18] MEDS: Lisinopril 2.5 MG TABLET 5 MG PO (11:45)
[2025-02-18] MEDS: INSULIN LISPRO (AdmeLOG) 1 UNIT/0.01 ML UNIT SC ×2 (11:45→17:55)
--- NOTE | 2025-02-18 11:46 | PC.SS ---
Tra Donald is a 69-year-old male admitted to [facility] for Sepsis with Proctitis. SS conducted bedside contact with the patient to complete initial assessment and to discuss discharge planning. Role and reason explained. Patient confirmed demographic information. Patient identifies his dtr Jackelin Donald [phone] as his surrogate decision maker. Pt states he is able to complete all ADL?s independent. Pt does not possesses any DME. Pts PCP is Tyrell. Pharmacy of choice is [facility]. Discharge options discussed and the pt wishes to return home.? Pt has his vehicle here and wishes to transport himself home upon DC. No further intervention required at this time, social media project manager would be available to address any further concerns. DC Plan: Home Contact: Jackelin Kelly Address: Confirmed on face sheet PCP: Tyrell
[2025-02-18 19:52] LABS: Stool for WBCs Negative (Negative)
[2025-02-18] MEDS: ATORVASTATIN CALCIUM 10 MG TABLET PO (20:37)
[2025-02-19] VITALS (15 sets, daily range): BP systolic 96–130; BP diastolic 53–95; PULSE 67–93; RESP 12–20; TEMP 36.3–37.6; O2SAT 93–100; BMI 32.5
[2025-02-19] MEDS: RINGERS LACTATED 1000 ML 1,000 ML 75 ML IV ×2 (01:57→15:56)
[2025-02-19] MEDS: HYDROcodone/APAP 5/325 TABLET 1 TAB PO ×2 (04:36→23:53)
[2025-02-19] MEDS: metroNIDAZOLE/NS 500 MG IVPB 500 MG/100 ML BAG 200 MG IV ×3 (05:02→22:05)
[2025-02-19 05:12] LABS: Basophils % (Auto) 0 % (0-2.5); Eosinophils % (Auto) 0 % (0-10); Hematocrit 32.2 % (41.0-53.0); Hemoglobin 11.2 g/dL (13.5-16.0); Immature Granulocytes % (Auto) 1 % (0-0); Lymphocytes # (Auto) 1.5 Thou/mm3 (1.0-4.8); Lymphocytes % (Auto) 9 % (10-50); Mean Corpuscular HGB Conc 34.8 g/dl (31.0-37.0); Mean Corpuscular Volume 89 fL (80-100); Monocytes # (Auto) 1.1 Thou/mm3 (0.0-0.8); Monocytes % (Auto) 7 % (0-12); Neutrophils # (Auto) 13.8 Thou/mm3 (1.8-7.7); Neutrophils % (Auto) 83 % (37-80); Nucleated Red Blood Cell % 0 /100 WBC (0); Platelet Count 237 Thou/mm3 (140-440); RDW Standard Deviation 38.4 fL (35.1-43.9); Red Blood Count 3.61 Miln/mm3 (4.50-5.90); White Blood Count 16.6 Thou/mm3 (3.8-10.6)
[2025-02-19 05:29] LABS: Alanine Aminotransferase 23 U/L (10-49); Albumin, Serum 3.7 gm/dL (3.4-4.8); Albumin/Globulin Ratio 1.7 (1.2-2.2); Alkaline Phosphatase 81 U/L (46-116); Anion Gap 11 (7-16); Aspartate Amino Transferase 21 U/L (0-34); BUN/Creatinine Ratio 19 Ratio (12-20); Bilirubin,Total 0.6 mg/dL (0.3-1.2); Blood Urea Nitrogen 17 mg/dL (9-23); Calcium 8.2 mg/dL (8.3-10.6); Calcium (Corrected) 8.4 mg/dL (8.5-10.1); Carbon Dioxide 25.4 mMol/L (20.0-31.0); Chloride 103 mMol/L (98-107); Creatinine (Component) 0.9 mg/dL (0.6-1.3); Estimated Creatinine Clearance 84.5 mL/min (>60); Globulin 2.2 gm/dL (2.3-3.5); Glucose 182 mg/dL (74-106); Magnesium 1.9 mg/dL (1.6-2.6); Osmolality,Calculated 284 (275-295); Phosphorous 2.1 mg/dL (2.4-5.1); Potassium 3.6 mMol/L (3.4-5.1); Sodium 139 mMol/L (136-145); Total Protein 5.9 gm/dL (5.7-8.2); eGFR > 60 See Note
[2025-02-19] MEDS: CIPROFLOXACIN/D5w 400 MG IVPB 400 MG/200 ML BAG 200 MG IV ×2 (08:37→20:29)
[2025-02-19] MEDS: PANTOPRAZOLE INJ 40 MG VIAL IVP (08:49)
--- NOTE | 2025-02-19 11:43 | ESPR_ITS ---
<Statement entered by Raine Archuleta MD - 02/24/25 15:45> I reviewed above note and agree with findings and plans. I have also personally examined the patient with medicine team and went over assessment and plan with medical team including record label intern and resident physician. Documentation for date of: 02/19/25 Subjective Subjective Interval history: Overnight, no acute events reported. Patient seen and examined at bedside. Patient continues to complain of severe pain. Patient is currently n.p.o., and will give IV morphine 1 mg every 4 for severe pain. Patient is waiting for his colonoscopy today. Patient has been clear since last night, and has had many bowel movements since GoLytely prep. Pending further GI recommendations status post colonoscopy findings. Exam Vital Signs Temp Pulse Resp BP Pulse Ox O2 Del Method 97.9 F 80 18 129/54 L 96 Room Air 02/19/25 08:00 02/19/25 08:00 02/19/25 08:00 02/19/25 08:00 02/19/25 08:00 02/19/25 08:00 Narrative Exam General Appearance: Pt in NAD laying comfortably in bed. HEENT: NC/AT, no scleral icterus, no conjunctival pallor, MMM Lungs: CTAB, no wheezes or crackles appreciated CVS: RRR, S1/S2 heard, no murmurs or rubs appreciated ABD: Soft, diffusely tender on palpation, non-distended, BS + in all 4 quadrants EXT: no deformity/edema/lesions/cyanosis/clubbing, radial pulses 2+ BL, DP pulses 2 + BL SKIN: Skin exam normal without any rashes. Neuro: A&O x 3. No gross neurological deficits. Motor and sensory grossly intact in B/L UL and LL. Psych: Appropriate mood and affect Objective Labs 02/19/25 04:47 02/19/25 04:47 Labs: Laboratory Results - last 24 hr 02/18/25 02/19/25 18:00 04:47 WBC 16.6 H RBC 3.61 L Hgb 11.2 L D Hct 32.2 L MCV 89 MCH 31.0 MCHC 34.8 RDW Std Deviation 38.4 Plt Count 237 Neut % (Auto) 83 H Lymph % (Auto) 9 L [place] % (Auto) 7 Eos % (Auto) 0 Baso % (Auto) 0 Neut # (Auto) 13.8 H Lymph # (Auto) 1.5 [place] # (Auto) 1.1 H Eos # (Auto) 0.0 Baso # (Auto) 0.0 Immature Gran # (Auto) 0.10 H Absolute Nucleated RBC 0.00 Immature Gran % 1 H Nucleated RBC % 0 Sodium 139 Potassium 3.6 D Chloride 103 Carbon Dioxide 25.4 Anion Gap 11 BUN 17 Creatinine 0.9 Estim Creat Clear Calc 84.5 eGFR > 60 BUN/Creatinine Ratio 19 Glucose 182 H D Calculated Osmolality 284 Calcium 8.2 L Corrected Calcium 8.4 L Phosphorus 2.1 L Magnesium 1.9 Total Bilirubin 0.6 AST 21 ALT 23 Alkaline Phosphatase 81 Total Protein 5.9 Albumin 3.7 Globulin 2.2 L Albumin/Globulin Ratio 1.7 Stool for White Cells Negative Quality Measures Quality Measures none Advance care planning discussed with:: patient Assessment & Plan Assessment Current Active Medications: Generic Name Dose Route Start Last Admin Trade Name Freq PRN Reason Stop Dose Admin Acetaminophen 650 mg 02/17/25 20:50 Acetaminophen 325 Mg Tablet PO 03/19/25 20:49 Q6H PRN Fever >101.5 Acetaminophen 650 mg 02/17/25 20:50 Acetaminophen 325 Mg Tablet PO 03/19/25 20:49 Q6H PRN PAIN SCALE 1-3 (mild Hydrocodone Bitart/Acetaminophen 1 tab 02/17/25 20:50 02/19/25 04:36 Hydrocodone/Apap 5/325 Tablet PO 02/22/25 20:49 1 tab Q4HR PRN Administration PAIN SCALE 4-10(Mod-Sev Atorvastatin Calcium 10 mg 02/18/25 21:00 02/18/25 20:37 Atorvastatin Calcium 10 Mg Tablet PO 03/20/25 20:59 10 mg HS DEDE Administration Dextrose 25 ml 02/17/25 20:53 Dextrose 50%-Water Inj 50 Ml Syringe IV 03/19/25 20:52 Q15MIN PRN BG 50-70 responsive npo pt Dextrose 50 ml 02/17/25 20:53 Dextrose 50%-Water Inj 50 Ml Syringe IV 03/19/25 20:52 Q15MIN PRN BG <50 OR BG <70 & pt unresponsive Enoxaparin Sodium 40 mg 02/18/25 09:00 02/19/25 07:58 Enoxaparin Sod Inj 40 Mg/0.4 Ml Syringe SC 03/04/25 08:59 Not Given QDAY DEDE Glucagon 1 mg 02/17/25 20:53 Glucagon Inj 1 Mg Vial IM Q15MIN PRN BG <70, and no IV access Ciprofloxacin/Dextrose 400 mg in 200 mls @ 200 mls/hr 02/18/25 09:00 02/19/25 08:37 Cipro Ivpb IV 02/25/25 08:59 200 mls/hr Q12HR DEDE Administration Metronidazole 500 mg in 100 mls @ 200 mls/hr 02/17/25 20:08 02/19/25 05:02 Flagyl 500 Mg Iv IV 02/24/25 20:07 200 mls/hr Q8HR DEDE Administration Lactated Ringer's 1,000 mls @ 75 mls/hr 02/17/25 21:00 02/19/25 01:57 Lactated Ringers IV 03/19/25 20:59 75 mls/hr .[id number] DEDE Administration Insulin Human Lispro 0 unit 02/18/25 08:08 02/19/25 07:57 Insulin Lispro (Admelog) 1 Unit/0.01 Ml Unit SC 03/20/25 07:29 Not Given AC DEDE Protocol Lisinopril 5 mg 02/18/25 10:30 02/19/25 08:48 Lisinopril 2.5 Mg Tablet PO 03/20/25 10:29 Not Given QDAY DEDE Ondansetron HCl 4 mg 02/17/25 20:50 Ondansetron Inj 2 Mg/Ml Inj 2 Ml IVP 03/19/25 20:49 Q6H PRN NAUSEA OR VOMITING Protocol Pantoprazole Sodium 40 mg 02/18/25 09:00 02/19/25 08:49 Pantoprazole Inj 40 Mg Vial IVP 03/20/25 08:59 40 mg QDAY DEDE Administration Plan Sofia Donald is a 69-year-old male with a past medical history of type 2 diabetes mellitus, hypertension, hyperlipidemia, and osteoarthritis who presents with rectal and perennial pain for the last few days and admitted for management of proctitis as seen on imaging. #Rectal proctitis #Leukocytosis Endorses rectal pain for approximately a week with failed outpatient antibiotic therapy of ciprofloxacin. GI consulted, recommended to admit patient for observation and obtain FOBT and other stool studies (calprotectin, culture, WBCs). Admitted with leukocytosis, fever 102.3 ?F and the source likely proctitis as seen on imaging. Received methylprednisolone 125 mg x 1 in ED. ? GI following, appreciate recommendations ? Ciprofloxacin and Flagyl ? Clear liquid diet ? Patient continues to have severe pain, and will add [place] and IV morphine for his pain regimen ? Patient is currently on GoLytely for colonoscopy today #Type 2 diabetes Patient takes metformin 1000 mg p.o. twice daily. Patient's last hemoglobin A1c was 7.2% ? SSI ? Accu-Cheks ACHS ? Hypoglycemic protocol in place #Hypertension #Proteinuria Patient takes enalapril 2.5 mg p.o. daily ? Lisinopril 5 mg p.o. daily #Hyperlipidemia Patient states simvastatin 20 mg p.o. at bedtime ? Atorvastatin 10 mg p.o. at bedtime #Osteoarthritis Patient takes meloxicam 15 mg p.o. twice daily Will hold and order inpatient pain regimen Health maintenance: Disposition: Admitted to observation status on [facility] for further management of rectal proctitis DVT prophylaxis: Lovenox 40 mg subcutaneous daily GI prophylaxis: Protonix 40 IV daily Diet: Clear liquid diet Mike: Not indicated Lines: Peripheral IVs Supplemental O2: None CODE STATUS: Full code Patient's plan and care discussed with my attending, Dr. Archuleta. Raeann Delatorre MD PGY-2
[2025-02-19] MEDS: MORPHINE SULF INJ 10 MG/ML VIAL IVP (12:10)
--- NOTE | 2025-02-19 14:44 | SUR.PHASEI ---
1441 Patient arrived to recovery resting comfortably in [facility], on oxygen 3L via oxy mask, drowsy and able to arouse with verbal prompting, breathing unlabored, vital signs stable, denies pain and nausea report received from Nora SALAZAR
--- NOTE | 2025-02-19 15:21 | SUR.PHASEI ---
1511 Report given to Tamara RN, patient meets discharge criteria from recovery, awake and talking with staff, breathing unlabored, vital signs stable, denies pain and nausea 1521 Patient transported via gurney to room 380 without incident, patient ambulated from gurney to restroom, used the restroom and then ambulated to his bed, patient resting comfortably in bed with call light in reach when this credit underwriter left patients room
--- NOTE | 2025-02-19 15:25 | PC.SS ---
Rounding: Pending colonoscopy, will DC home when ready
[2025-02-19] MEDS: INSULIN LISPRO (AdmeLOG) 1 UNIT/0.01 ML UNIT SC (16:20)
[2025-02-19] MEDS: ATORVASTATIN CALCIUM 10 MG TABLET PO (20:29)
[2025-02-19] MEDS: HYDROCORTISONE ACET 25 MG SUPP 50 MG PR (20:29)
[2025-02-19] MEDS: MELATONIN 3 MG TABLET PO (20:29)
[2025-02-20] VITALS (7 sets, daily range): BP systolic 112–135; BP diastolic 51–79; PULSE 75–87; RESP 18–20; TEMP 36.2–37.6; O2SAT 95–96
[2025-02-20] MEDS: RINGERS LACTATED 1000 ML 1,000 ML 75 ML IV ×2 (01:17→11:21)
[2025-02-20] MEDS: metroNIDAZOLE/NS 500 MG IVPB 500 MG/100 ML BAG 200 MG IV ×3 (05:04→22:11)
[2025-02-20 05:34] LABS: Basophils # (Auto) 0.1 Thou/mm3 (0.0-0.2); Basophils % (Auto) 0 % (0-2.5); Eosinophils % (Auto) 0 % (0-10); Hematocrit 32.3 % (41.0-53.0); Hemoglobin 11.1 g/dL (13.5-16.0); Immature Granulocytes % (Auto) 1 % (0-0); Immature Granulocytes Auto 0.25 Thou/mm3 (0.00-0.00); Lymphocytes % (Auto) 11 % (10-50); Mean Corpuscular HGB Conc 34.4 g/dl (31.0-37.0); Mean Corpuscular Hemoglobin 30.8 pg (25.0-35.0); Mean Corpuscular Volume 90 fL (80-100); Monocytes # (Auto) 1.3 Thou/mm3 (0.0-0.8); Monocytes % (Auto) 8 % (0-12); Neutrophils # (Auto) 14.3 Thou/mm3 (1.8-7.7); Neutrophils % (Auto) 80 % (37-80); Nucleated Red Blood Cell % 0 /100 WBC (0); Platelet Count 255 Thou/mm3 (140-440); RDW Standard Deviation 39.9 fL (35.1-43.9); White Blood Count 17.9 Thou/mm3 (3.8-10.6)
[2025-02-20 06:10] LABS: Alanine Aminotransferase 19 U/L (10-49); Albumin, Serum 3.4 gm/dL (3.4-4.8); Albumin/Globulin Ratio 1.6 (1.2-2.2); Alkaline Phosphatase 80 U/L (46-116); Anion Gap 11 (7-16); Aspartate Amino Transferase 14 U/L (0-34); BUN/Creatinine Ratio 13 Ratio (12-20); Bilirubin,Total 0.7 mg/dL (0.3-1.2); Blood Urea Nitrogen 13 mg/dL (9-23); Calcium 7.6 mg/dL (8.3-10.6); Calcium (Corrected) 8.1 mg/dL (8.5-10.1); Carbon Dioxide 24.9 mMol/L (20.0-31.0); Chloride 103 mMol/L (98-107); Estimated Creatinine Clearance 76.1 mL/min (>60); Globulin 2.1 gm/dL (2.3-3.5); Glucose 179 mg/dL (74-106); Magnesium 1.9 mg/dL (1.6-2.6); Osmolality,Calculated 281 (275-295); Phosphorous 2.9 mg/dL (2.4-5.1); Potassium 3.8 mMol/L (3.4-5.1); Sodium 139 mMol/L (136-145); Total Protein 5.5 gm/dL (5.7-8.2); eGFR > 60 See Note
[2025-02-20] MEDS: CIPROFLOXACIN/D5w 400 MG IVPB 400 MG/200 ML BAG 200 MG IV ×2 (07:50→20:50)
[2025-02-20] MEDS: Lisinopril 2.5 MG TABLET 5 MG PO (07:51)
[2025-02-20] MEDS: PANTOPRAZOLE 40 MG TABLET PO (07:51)
[2025-02-20] MEDS: ENOXAPARIN SOD INJ 40 MG/0.4 ML SYRINGE SC (07:51)
[2025-02-20] MEDS: INSULIN LISPRO (AdmeLOG) 1 UNIT/0.01 ML UNIT SC ×3 (08:02→17:44)
[2025-02-20 10:16] LABS: Basophils # (Auto) 0.1 Thou/mm3 (0.0-0.2); Basophils % (Auto) 0 % (0-2.5); Eosinophils # (Auto) 0.1 Thou/mm3 (0.0-0.5); Eosinophils % (Auto) 0 % (0-10); Hematocrit 35.8 % (41.0-53.0); Hemoglobin 12.1 g/dL (13.5-16.0); Immature Granulocytes % (Auto) 1 % (0-0); Immature Granulocytes Auto 0.19 Thou/mm3 (0.00-0.00); Lymphocytes % (Auto) 10 % (10-50); Mean Corpuscular HGB Conc 33.8 g/dl (31.0-37.0); Mean Corpuscular Hemoglobin 30.7 pg (25.0-35.0); Mean Corpuscular Volume 91 fL (80-100); Monocytes # (Auto) 1.3 Thou/mm3 (0.0-0.8); Monocytes % (Auto) 6 % (0-12); Neutrophils # (Auto) 17.1 Thou/mm3 (1.8-7.7); Neutrophils % (Auto) 83 % (37-80); Nucleated Red Blood Cell % 0 /100 WBC (0); Platelet Count 269 Thou/mm3 (140-440); RDW Standard Deviation 40.8 fL (35.1-43.9); Red Blood Count 3.94 Miln/mm3 (4.50-5.90); White Blood Count 20.7 Thou/mm3 (3.8-10.6)
[2025-02-20] MEDS: RINGERS LACTATED 1000 ML 1,000 ML 999 ML IV (10:47)
--- NOTE | 2025-02-20 11:16 | ESPR_ITS ---
Documentation for date of: 02/20/25 Subjective Subjective Interval history: Colonoscopy findings discussed with the son From a GI viewpoint patient can be discharged Exam Vital Signs Temp Pulse Resp BP Pulse Ox O2 Del Method O2 Flow Rate 97.7 F 75 18 115/62 95 Room Air 1 02/20/25 08:00 02/20/25 08:00 02/20/25 08:00 02/20/25 08:00 02/20/25 08:00 02/20/25 04:00 02/19/25 14:59 Objective Labs 02/20/25 10:08 02/20/25 04:39 Labs: Laboratory Results - last 24 hr 02/20/25 02/20/25 04:39 10:08 WBC 17.9 H 20.7 H RBC 3.60 L 3.94 L Hgb 11.1 L 12.1 L Hct 32.3 L 35.8 L MCV 90 91 MCH 30.8 30.7 MCHC 34.4 33.8 RDW Std Deviation 39.9 40.8 Plt Count 255 269 Neut % (Auto) 80 83 H Lymph % (Auto) 11 10 [place] % (Auto) 8 6 Eos % (Auto) 0 0 Baso % (Auto) 0 0 Neut # (Auto) 14.3 H 17.1 H Lymph # (Auto) 2.0 2.0 [place] # (Auto) 1.3 H 1.3 H Eos # (Auto) 0.0 0.1 Baso # (Auto) 0.1 0.1 Immature Gran # (Auto) 0.25 H 0.19 H Absolute Nucleated RBC 0.00 0.00 Immature Gran % 1 H 1 H Nucleated RBC % 0 0 Sodium 139 Potassium 3.8 Chloride 103 Carbon Dioxide 24.9 Anion Gap 11 BUN 13 Creatinine 1.0 Estim Creat Clear Calc 76.1 eGFR > 60 BUN/Creatinine Ratio 13 Glucose 179 H Calculated Osmolality 281 Calcium 7.6 L Corrected Calcium 8.1 L Phosphorus 2.9 Magnesium 1.9 Total Bilirubin 0.7 AST 14 ALT 19 Alkaline Phosphatase 80 Total Protein 5.5 L Albumin 3.4 Globulin 2.1 L Albumin/Globulin Ratio 1.6 Impressions Impression: # Mild proctitis Anusol HC suppository for rectal pain Can be discharged home to be followed by the PCP Assessment & Plan A&P Narrative # Leukocytosis with abnormal CT scan of the abdomen pelvis showing inflammatory change in the region of the rectum differential diagnosis inflammatory versus infectious Plan Clear liquid diet Broad-spectrum antibiotics GoLytely prep Consent obtained for fiberoptic colonoscopy with possible biopsies possible therapeutic intervention under intravenous moderate sedation scheduled for a.m. Other medical problems include diabetes mellitus type 2 essential hypertension Hyperlipidemia Thank you very much for the opportunity to participate in care of this patient Time Spent With Patient Time: Total time spent is greater than 50% in coordination of care (as documented) at patient's floor/unit and/or counseling patient:
[2025-02-20] MEDS: ACETAMINOPHEN 325 MG TABLET 650 MG PO ×2 (11:25→15:34)
--- NOTE | 2025-02-20 16:06 | ESPR_ITS ---
<Statement entered by Raine Archuleta MD - 02/24/25 15:46> I reviewed above note and agree with findings and plans. I have also personally examined the patient with medicine team and went over assessment and plan with medical team including director internal communications and resident physician. Documentation for date of: 02/20/25 Subjective Subjective Interval history: Overnight, no acute events reported. Patient understands his colonoscopy findings, which were erythematous mucosa and internal hemorrhoids. GI recommended to continue with hydrocortisone acetate suppositories for 6 more days. Repeat CBC this morning showed a white count increased from 17-20. Will give a 1 L bolus, and continue with IV maintenance fluids. Patient currently is on Tylenol for pain control, and did state if patient's pain continues to worsen, can ask for tramadol to help patient's sleep. Patient did endorse having loose stools for the last 2 weeks, and bilateral shoulder pain for the last few months. Patient's abdominal pain and fever started last week. GI at this time recommends discharge from their standpoint. Will continue to monitor patient's labs tomorrow and see if additional imaging needed as white count is increasing. Afebrile in the last 24 hours. All questions asked and answered. Exam Vital Signs Temp Pulse Resp BP Pulse Ox O2 Del Method O2 Flow Rate 97.2 F 81 18 135/51 H 95 Room Air 1 02/20/25 15:53 02/20/25 15:53 02/20/25 15:53 02/20/25 15:53 02/20/25 15:53 02/20/25 15:53 02/19/25 14:59 Narrative Exam General Appearance: Pt in NAD laying comfortably in bed. HEENT: NC/AT, no scleral icterus, no conjunctival pallor, MMM Lungs: CTAB, no wheezes or crackles appreciated CVS: RRR, S1/S2 heard, no murmurs or rubs appreciated ABD: Soft, diffusely tender on palpation, non-distended, BS + in all 4 quadrants EXT: no deformity/edema/lesions/cyanosis/clubbing, radial pulses 2+ BL, DP pulses 2 + BL SKIN: Skin exam normal without any rashes. Neuro: A&O x 3. No gross neurological deficits. Motor and sensory grossly intact in B/L UL and LL. Psych: Appropriate mood and affect Objective Labs 02/20/25 10:08 02/20/25 04:39 Labs: Laboratory Results - last 24 hr 02/20/25 02/20/25 04:39 10:08 WBC 17.9 H 20.7 H RBC 3.60 L 3.94 L Hgb 11.1 L 12.1 L Hct 32.3 L 35.8 L MCV 90 91 MCH 30.8 30.7 MCHC 34.4 33.8 RDW Std Deviation 39.9 40.8 Plt Count 255 269 Neut % (Auto) 80 83 H Lymph % (Auto) 11 10 [place] % (Auto) 8 6 Eos % (Auto) 0 0 Baso % (Auto) 0 0 Neut # (Auto) 14.3 H 17.1 H Lymph # (Auto) 2.0 2.0 [place] # (Auto) 1.3 H 1.3 H Eos # (Auto) 0.0 0.1 Baso # (Auto) 0.1 0.1 Immature Gran # (Auto) 0.25 H 0.19 H Absolute Nucleated RBC 0.00 0.00 Immature Gran % 1 H 1 H Nucleated RBC % 0 0 Sodium 139 Potassium 3.8 Chloride 103 Carbon Dioxide 24.9 Anion Gap 11 BUN 13 Creatinine 1.0 Estim Creat Clear Calc 76.1 eGFR > 60 BUN/Creatinine Ratio 13 Glucose 179 H Calculated Osmolality 281 Calcium 7.6 L Corrected Calcium 8.1 L Phosphorus 2.9 Magnesium 1.9 Total Bilirubin 0.7 AST 14 ALT 19 Alkaline Phosphatase 80 Total Protein 5.5 L Albumin 3.4 Globulin 2.1 L Albumin/Globulin Ratio 1.6 Quality Measures Quality Measures none Advance care planning discussed with:: patient Assessment & Plan Assessment Current Active Medications: Generic Name Dose Route Start Last Admin Trade Name Ezeq PRN Reason Stop Dose Admin Acetaminophen 650 mg 02/17/25 20:50 Acetaminophen 325 Mg Tablet PO 03/19/25 20:49 Q6H PRN Fever >101.5 Acetaminophen 650 mg 02/17/25 20:50 02/20/25 15:34 Acetaminophen 325 Mg Tablet PO 03/19/25 20:49 650 mg Q6H PRN Administration PAIN SCALE 1-3 (mild Hydrocodone Bitart/Acetaminophen 1 tab 02/19/25 12:02 02/19/25 23:53 Hydrocodone/Apap 5/325 Tablet PO 02/22/25 20:49 1 tab Q4HR PRN Administration Pain Scale 4-6 Atorvastatin Calcium 10 mg 02/18/25 21:00 02/19/25 20:29 Atorvastatin Calcium 10 Mg Tablet PO 03/20/25 20:59 10 mg HS DEDE Administration Dextrose 25 ml 02/17/25 20:53 Dextrose 50%-Water Inj 50 Ml Syringe IV 03/19/25 20:52 Q15MIN PRN BG 50-70 responsive npo pt Dextrose 50 ml 02/17/25 20:53 Dextrose 50%-Water Inj 50 Ml Syringe IV 03/19/25 20:52 Q15MIN PRN BG <50 OR BG <70 & pt unresponsive Enoxaparin Sodium 40 mg 02/18/25 09:00 02/20/25 07:51 Enoxaparin Sod Inj 40 Mg/0.4 Ml Syringe SC 03/04/25 08:59 40 mg QDAY DEDE Administration Glucagon 1 mg 02/17/25 20:53 Glucagon Inj 1 Mg Vial IM Q15MIN PRN BG <70, and no IV access Hydrocortisone Acetate 50 mg 02/19/25 21:00 02/19/25 20:29 Hydrocortisone Acet 25 Mg Supp [place] 03/21/25 20:59 50 mg HS DEDE Administration Ciprofloxacin/Dextrose 400 mg in 200 mls @ 200 mls/hr 02/18/25 09:00 02/20/25 07:50 Cipro Ivpb IV 02/25/25 08:59 200 mls/hr Q12HR DEDE Administration Metronidazole 500 mg in 100 mls @ 200 mls/hr 02/17/25 20:08 02/20/25 13:38 Flagyl 500 Mg Iv IV 02/24/25 20:07 200 mls/hr Q8HR DEDE Administration Lactated Ringer's 1,000 mls @ 75 mls/hr 02/17/25 21:00 02/20/25 11:21 Lactated Ringers IV 03/19/25 20:59 75 mls/hr .[id number] DEDE Administration Insulin Human Lispro 0 unit 02/18/25 08:08 02/20/25 12:12 Insulin Lispro (Admelog) 1 Unit/0.01 Ml Unit SC 03/20/25 07:29 2 unit AC DEDE Administration Protocol Lisinopril 5 mg 02/18/25 10:30 02/20/25 07:51 Lisinopril 2.5 Mg Tablet PO 03/20/25 10:29 5 mg QDAY DEDE Administration Morphine Sulfate 1 mg 02/19/25 12:01 02/19/25 12:10 Morphine Sulf Inj 10 Mg/Ml Vial IVP 02/24/25 12:00 1 mg Q4HR PRN Administration severe pain 7-10 Ondansetron HCl 4 mg 02/17/25 20:50 Ondansetron Inj 2 Mg/Ml Inj 2 Ml IVP 03/19/25 20:49 Q6H PRN NAUSEA OR VOMITING Protocol Pantoprazole Sodium 40 mg 02/20/25 09:00 02/20/25 07:51 Pantoprazole 40 Mg Tablet PO 03/20/25 08:59 40 mg QDAY DEDE Administration Plan Sofia Donald is a 69-year-old male with a past medical history of type 2 diabetes mellitus, hypertension, hyperlipidemia, and osteoarthritis who presents with rectal and perennial pain for the last few days and admitted for management of proctitis as seen on imaging. #Rectal proctitis #Leukocytosis Endorses rectal pain for approximately a week with failed outpatient antibiotic therapy of ciprofloxacin. GI consulted, recommended to admit patient for observation and obtain FOBT and other stool studies (calprotectin, culture, WBCs). Admitted with leukocytosis, fever 102.3 ?F and the source likely proctitis as seen on imaging. Received methylprednisolone 125 mg x 1 in ED. ? GI following, appreciate recommendations ? Ciprofloxacin and Flagyl ? Clear liquid diet ? Patient continues to have severe pain, and will add [place] and IV morphine for his pain regimen ? Urged patient to try tramadol for pain at nighttime to help him sleep ? Hydrocortisone acetate suppositories for the next 6 days #Type 2 diabetes Patient takes metformin 1000 mg p.o. twice daily. Patient's last hemoglobin A1c was 7.2% ? SSI ? Accu-Cheks ACHS ? Hypoglycemic protocol in place #Hypertension #Proteinuria Patient takes enalapril 2.5 mg p.o. daily ? Lisinopril 5 mg p.o. daily #Hyperlipidemia Patient states simvastatin 20 mg p.o. at bedtime ? Atorvastatin 10 mg p.o. at bedtime #Osteoarthritis Patient takes meloxicam 15 mg p.o. twice daily Will hold and order inpatient pain regimen Health maintenance: Disposition: Admitted to observation status on [facility] for further management of rectal proctitis DVT prophylaxis: Lovenox 40 mg subcutaneous daily GI prophylaxis: Protonix 40 IV daily Diet: Clear liquid diet Mike: Not indicated Lines: Peripheral IVs Supplemental O2: None CODE STATUS: Full code Patient's plan and care discussed with my attending, Dr. Archuleta. Raeann Delatorre MD PGY-2
[2025-02-20] MEDS: HYDROCORTISONE ACET 25 MG SUPP 50 MG PR (20:49)
[2025-02-20] MEDS: ATORVASTATIN CALCIUM 10 MG TABLET PO (20:50)
[2025-02-20] MEDS: MELATONIN 3 MG TABLET PO (22:11)
[2025-02-21] VITALS: BP 127/63; PULSE 79; RESP 17; TEMP 36.8; O2SAT 96
[2025-02-21] MEDS: RINGERS LACTATED 1000 ML 1,000 ML 75 ML IV (00:42)
[2025-02-21 04:00] VITALS: BP 146/77; PULSE 75; RESP 20; TEMP 36.2; O2SAT 95
[2025-02-21] MEDS: metroNIDAZOLE/NS 500 MG IVPB 500 MG/100 ML BAG 200 MG IV (05:36)
[2025-02-21 05:54] LABS: Basophils # (Auto) 0.1 Thou/mm3 (0.0-0.2); Basophils % (Auto) 0 % (0-2.5); Eosinophils # (Auto) 0.1 Thou/mm3 (0.0-0.5); Eosinophils % (Auto) 1 % (0-10); Hemoglobin 11.3 g/dL (13.5-16.0); Immature Granulocytes % (Auto) 2 % (0-0); Immature Granulocytes Auto 0.31 Thou/mm3 (0.00-0.00); Lymphocytes # (Auto) 2.2 Thou/mm3 (1.0-4.8); Lymphocytes % (Auto) 12 % (10-50); Mean Corpuscular HGB Conc 34.2 g/dl (31.0-37.0); Mean Corpuscular Hemoglobin 30.6 pg (25.0-35.0); Mean Corpuscular Volume 89 fL (80-100); Monocytes # (Auto) 1.1 Thou/mm3 (0.0-0.8); Monocytes % (Auto) 6 % (0-12); Neutrophils # (Auto) 15.5 Thou/mm3 (1.8-7.7); Neutrophils % (Auto) 80 % (37-80); Nucleated Red Blood Cell # 0.02 Thou/mm3 (0.00-0.00); Nucleated Red Blood Cell % 0 /100 WBC (0); Platelet Count 261 Thou/mm3 (140-440); RDW Standard Deviation 39.5 fL (35.1-43.9); Red Blood Count 3.69 Miln/mm3 (4.50-5.90); White Blood Count 19.4 Thou/mm3 (3.8-10.6)
[2025-02-21 06:26] LABS: Alanine Aminotransferase 16 U/L (10-49); Albumin, Serum 3.4 gm/dL (3.4-4.8); Albumin/Globulin Ratio 1.5 (1.2-2.2); Alkaline Phosphatase 82 U/L (46-116); Anion Gap 13 (7-16); Aspartate Amino Transferase 10 U/L (0-34); BUN/Creatinine Ratio 10 Ratio (12-20); Bilirubin,Total 0.6 mg/dL (0.3-1.2); Blood Urea Nitrogen 9 mg/dL (9-23); Calcium 7.9 mg/dL (8.3-10.6); Calcium (Corrected) 8.4 mg/dL (8.5-10.1); Chloride 106 mMol/L (98-107); Creatinine (Component) 0.9 mg/dL (0.6-1.3); Estimated Creatinine Clearance 84.5 mL/min (>60); Globulin 2.2 gm/dL (2.3-3.5); Glucose 171 mg/dL (74-106); Osmolality,Calculated 285 (275-295); Potassium 3.7 mMol/L (3.4-5.1); Sodium 142 mMol/L (136-145); Total Protein 5.6 gm/dL (5.7-8.2); eGFR > 60 See Note
[2025-02-21 07:38] VITALS: BP 131/70; PULSE 75; RESP 16; TEMP 36.3; O2SAT 96
[2025-02-21] MEDS: INSULIN LISPRO (AdmeLOG) 1 UNIT/0.01 ML UNIT SC ×2 (07:38→11:36)
[2025-02-21] MEDS: ENOXAPARIN SOD INJ 40 MG/0.4 ML SYRINGE SC (09:00)
[2025-02-21 09:10] VITALS: BP 131/70; PULSE 75
[2025-02-21] MEDS: Lisinopril 2.5 MG TABLET 5 MG PO (09:10)
[2025-02-21] MEDS: CALCIUM CARBONATE 600 MG TABLET PO (09:10)
[2025-02-21] MEDS: CIPROFLOXACIN/D5w 400 MG IVPB 400 MG/200 ML BAG 200 MG IV (09:10)
[2025-02-21] MEDS: PANTOPRAZOLE 40 MG TABLET PO (09:10)
--- NOTE | 2025-02-21 10:48 | PD.IMPROG ---
Documentation for date of: 02/21/25 Subjective Subjective Interval history: Finally WBC count trending downwards at 19.4 Case discussed with internal medicine team yesterday Proctitis is very mild I do not think the leukocytosis is coming from mild proctitis Exam Vital Signs Temp Pulse Resp BP Pulse Ox O2 Del Method O2 Flow Rate 97.3 F 75 16 131/70 H 96 Room Air 1 02/21/25 07:38 02/21/25 09:10 02/21/25 07:38 02/21/25 09:10 02/21/25 07:38 02/21/25 07:38 02/19/25 14:59 Objective Labs 02/21/25 05:32 02/21/25 05:32 Labs: Laboratory Results - last 24 hr 02/21/25 05:32 WBC 19.4 H RBC 3.69 L Hgb 11.3 L Hct 33.0 L MCV 89 MCH 30.6 MCHC 34.2 RDW Std Deviation 39.5 Plt Count 261 Neut % (Auto) 80 Lymph % (Auto) 12 [place] % (Auto) 6 Eos % (Auto) 1 Baso % (Auto) 0 Neut # (Auto) 15.5 H Lymph # (Auto) 2.2 [place] # (Auto) 1.1 H Eos # (Auto) 0.1 Baso # (Auto) 0.1 Immature Gran # (Auto) 0.31 H Absolute Nucleated RBC 0.02 H Immature Gran % 2 H Nucleated RBC % 0 Sodium 142 Potassium 3.7 Chloride 106 Carbon Dioxide 23.0 Anion Gap 13 BUN 9 Creatinine 0.9 Estim Creat Clear Calc 84.5 eGFR > 60 BUN/Creatinine Ratio 10 L Glucose 171 H Calculated Osmolality 285 Calcium 7.9 L Corrected Calcium 8.4 L Total Bilirubin 0.6 AST 10 ALT 16 Alkaline Phosphatase 82 Total Protein 5.6 L Albumin 3.4 Globulin 2.2 L Albumin/Globulin Ratio 1.5 Impressions Impression: # Leukocytosis trending downwards # Proctitis biopsies pending Continue current management Assessment & Plan A&P Narrative # Leukocytosis with abnormal CT scan of the abdomen pelvis showing inflammatory change in the region of the rectum differential diagnosis inflammatory versus infectious Plan Clear liquid diet Broad-spectrum antibiotics GoLytely prep Consent obtained for fiberoptic colonoscopy with possible biopsies possible therapeutic intervention under intravenous moderate sedation scheduled for a.m. Other medical problems include diabetes mellitus type 2 essential hypertension Hyperlipidemia Thank you very much for the opportunity to participate in care of this patient Time Spent With Patient Time: Total time spent is greater than 50% in coordination of care (as documented) at patient's floor/unit and/or counseling patient:
--- NOTE | 2025-02-21 10:52 | ESDS_ITS ---
<Statement entered by Raine Archuleta MD - 02/26/25 12:35> I reviewed above note and agree with findings and plans. I have also personally examined the patient with medicine team and went over assessment and plan with medical team including digital marketing intern and resident physician. Planned Discharge Date 02/21/25 DS: Providers Provider Date of admission: 02/19/25 15:07 Primary care physician: Physician No Primary/Family Admitting Provider: Alcides Whitaker MD Attending Provider on Admission: Raine Archuleta MD Consults: 02/17/25 20:07 Consult to Gastroenterology Stat Comment: proctitis with fever Consulting Provider: Lars Clinton Attending Provider on DC: Jaime Winters MD Discharging Provider: Jaime Winters MD DS: Diagnosis Problem List Completed Was Problem List Reviewed/Reconciled?: Yes Hospital Course Hospital Course Hospital course: Tra Donald is a 69-year-old male with past medical history of type 2 diabetes mellitus, hypertension, hyperlipidemia, and chronic joint pain who presented on 02/17 with a chief complaint of rectal pain. Patient states that he began to feel ill last Saturday with subjective fevers and chills along with pain while seated. He states that he saw his primary care physician Dr. Santillan who prescribed him ciprofloxacin but he continued to have subjective fevers and chills with decreased p.o. intake with associated weakness and dizziness. Denied any recent sick contacts, recent travel, changes in diet, changes in water sources, any previous history of cancer in his family. Last colonoscopy was more than 10 years ago and was normal. He also states that he is having some pain near his penile region when he experiences discomfort such as cough or throat clearing. CT A/P showed diffuse thickening of the rectal wall with perirectal inflammatory change with concern for proctitis and was started on ciprofloxacin and flagyl. GI was consulted and underwent colonoscopy that revealed a patchy area of moderately erythematous mucosa in the rectum and biopsies were taken. Patient was then started on Anusol HC suppository and cleared from GI standpoint for discharge with follow-up with PCP. Throughout hospital course, vital signs remained stable, WBC elevated to 20.7 but down trended to 19.4 on day of discharge, suspect to be secondary to steroids. CHEM panel largely unremarkable. Urine culture negative, stool culture negative, blood cultures NGTD. Patient to be discharged with 6 more days of Anusol HC suppository as well as Augmentin and Flagyl for another 10 more days to complete antibiotic course. Diagnoses during admission: #Rectal proctitis #Leukocytosis #Type 2 diabetes #Hypertension #Proteinuria #Hyperlipidemia #Osteoarthritis Discharge instructions: Take amoxicillin-clavulanate/Augmentin twice per day for 10 more days Take metronidazole/Flagyl twice per day for 10 more days Discontinue taking these medications: Meloxicam 15mg daily and avoid any NSAIDs, caffeine, or spicy foods Start taking these new medications: Hydrocortisone acetate suppository for 6 more nights and Tramadol for pain at night as needed, Zofran as needed for nausea Continue other home medications as prescribed. Obtain complete blood count (CBC) in 3-5 days. Follow up with PCP within 1-2 weeks. Follow up with Dr. Clinton in 1-2 weeks. Return to the ED if you develop new or worsening symptoms. ----- Plan discussed with attending physician Dr. Kathe Winters MD PGY-1 Internal Medicine Time Spent with Patient Time attestation: Total time spent providing and/or coordinating discharge services: Time spent: Greater than 30 minutes Exam Vital Signs Temp Pulse Resp BP Pulse Ox O2 Del Method O2 Flow Rate 97.3 F 75 16 131/70 H 96 Room Air 1 02/21/25 07:38 02/21/25 09:10 02/21/25 07:38 02/21/25 09:10 02/21/25 07:38 02/21/25 07:38 02/19/25 14:59 Narrative Exam General Appearance: Pt in NAD laying comfortably in bed. HEENT: NC/AT, no scleral icterus, no conjunctival pallor, MMM Lungs: CTAB, no wheezes or crackles appreciated CVS: RRR, S1/S2 heard, no murmurs or rubs appreciated ABD: Soft, mildly tender on palpation, non-distended, BS + in all 4 quadrants EXT: no deformity/edema/lesions/cyanosis/clubbing, radial pulses 2+ BL, DP puls es 2 + BL SKIN: Skin exam normal without any rashes. Neuro: A&O x 3. No gross neurological deficits. Motor and sensory grossly intact in B/L UL and LL. Psych: Appropriate mood and affect Discharge Plan Plan Patient Disposition: HOME (Self Care) Disposition Comment: ready for discharge. Care Plan Goals: Take amoxicillin-clavulanate/Augmentin twice per day for 10 more days Take metronidazole/Flagyl twice per day for 10 more days Discontinue taking these medications: Meloxicam 15mg daily and avoid any NSAIDs, caffeine, or spicy foods Start taking these new medications: Hydrocortisone acetate suppository for 6 more nights and Tramadol for pain at night as needed, Zofran as needed for nausea Continue other home medications as prescribed. Obtain complete blood count (CBC) in 3-5 days. Follow up with PCP within 1-2 weeks. Follow up with Dr. Clinton in 1-2 weeks. Follow-up with your PCP within 1 to 2 weeks. Return to the ED if you develop new or worsening symptoms. Prescriptions/Referrals Prescriptions/Med Rec: New ondansetron 4 mg tablet,disintegrating 4 mg PO TID PRN (Reason: nausea and vomiting) 30 Days Qty: 10 0RF hydrocortisone acetate 25 mg suppository 50 mg MI HS 6 Days Qty: 12 0RF tramadol 50 mg tablet 50 mg PO BID PRN (Reason: pain) Qty: 6 0RF amoxicillin-pot clavulanate 875-125 mg tablet 1 tab PO BID 10 Days Qty: 20 0RF metronidazole 500 mg tablet 500 mg PO BID 10 Days Qty: 20 0RF Continued simvastatin 20 mg tablet 20 mg PO DAILY Patient Comments: take 1 tablet by mouth at bedtime metformin 1,000 mg tablet 1,000 mg PO BID enalapril maleate 2.5 mg tablet 2.5 mg PO AC Patient Comments: take 1 tablet by mouth every morning Discontinued meloxicam 15 mg tablet 15 mg PO DAILY Patient Comments: take 1 tablet by mouth once daily AFTER A MEAL NEEDED FOR PAIN Referrals: Lars Clinton MD [Physician] - No Primary/Family,Physician [Primary Care Provider] - Patient/Caregiver Discharge Instructions Discharge Activity: activity as tolerated Print Language: Georgian Stand Alone Forms: Bridget[facility] Award Info., Patient Portal Info Letter Discharge Order Discharge Orders: Discharge (Routine); Ordered 02/21/25 Ordered By: Jaime Winters Quality Discharge Quality Measures VTE prophylaxis
[2025-02-21 11:38] VITALS: BP 147/81; PULSE 81; RESP 18; TEMP 36.2; O2SAT 97
[2025-02-26 06:59] LABS: Calprotectin, Stool* 10 mcg/g
== END 2025-02-21 13:20 | disposition home or self-care (01) | DRG 395 ==
LOC: SERX 20:13 → SERHOLD 21:14 → S3SX 02-18 06:35 → SERHOLD 02-18 06:36 → S3SX 02-18 06:37 → SERHOLD 02-18 06:38
PROVIDERS: Nurse Practitioner Family; Specialist; Student in an Organized Health Care Education/Training Program; Admitting Provider Student in an Organized Health Care Education/Training Program; Emergency Provider Emergency Medicine; Visit Provider Internal Medicine
PROC: 0DJD8ZZ Inspection of Lower Intestinal Tract, Via Natural or Artificial Opening Endoscopic (ICD-10-PCS; CPT 45378; principal; 2025-02-19 12:15)
DX: K62.89 Other specified diseases of anus and rectum (principal); E11.9 Type 2 diabetes mellitus without complications; I10 Essential (primary) hypertension; E78.5 Hyperlipidemia, unspecified; M19.90 Unspecified osteoarthritis, unspecified site; D72.829 Elevated white blood cell count, unspecified; R80.9 Proteinuria, unspecified; K64.8 Other hemorrhoids; Z79.84 Long term (current) use of oral hypoglycemic drugs; Z79.899 Other long term (current) drug therapy
CPT/HCPCS: 36415; 74176; 80053; 81001; 83605; 83690; 83735; 83993; 84100; 84145; 85025; 85652; 86140; 87015; 87040; 87045; 87046; 87077; 87086; 87205; 87400; 87811; 87899; 96361; 96365; 96375; 99285; G0378; J0744; J1200; J1650; J1815; J1885; J2250; J2270; J2470; J2919; J3010; J3490; J7030; J7120; Q0162; A9270; J1836

== ENCOUNTER → 2025-04-15 | Outpatient (CLI) | payer OTHER, MEDICAID, SELFPAY ==
[2025-04-15 09:04] LABS: Glucose Estimated Average 143 mg/dL (80-131); Hemoglobin A1C 6.6 % Hgb (4.8-6.0)
[2025-04-15 09:09] LABS: Prostate Specific Antigen 0.37 ng/mL (0-4.00)
[2025-04-15 09:23] LABS: Alanine Aminotransferase 26 U/L (10-49); Albumin, Serum 4.5 gm/dL (3.4-4.8); Albumin/Globulin Ratio 1.7 (1.2-2.2); Alkaline Phosphatase 91 U/L (46-116); Anion Gap 9 (7-16); Aspartate Amino Transferase 18 U/L (0-34); BUN/Creatinine Ratio 17 Ratio (12-20); Bilirubin,Total 0.9 mg/dL (0.3-1.2); Blood Urea Nitrogen 17 mg/dL (9-23); Calcium 9.3 mg/dL (8.3-10.6); Calcium (Corrected) 9.3 mg/dL (8.5-10.1); Carbon Dioxide 28.1 mMol/L (20.0-31.0); Cardiac Risk Estimate 3.2 RATIO (4.0-6.7); Chloride 105 mMol/L (98-107); Cholesterol 154 mg/dL (132-200); Creatinine (Component) 1.0 mg/dL (0.6-1.3); Free T4 (Free Thyroxine) 1.17 ng/dL (0.89-1.76); Globulin 2.6 gm/dL (2.3-3.5); Glucose 138 mg/dL (74-106); HDL Cholesterol 48 mg/dL (40-60); LDL Cholesterol,Calculated 81 mg/dL (0-130); Osmolality,Calculated 286 (275-295); Potassium 4.3 mMol/L (3.4-5.1); Sodium 142 mMol/L (136-145); Thyroid Stimulating Hormone 3.92 uIU/mL (0.55-4.78); Total Protein 7.1 gm/dL (5.7-8.2); Triglycerides 126 mg/dL (30-150); eGFR > 60 See Note
[2025-04-15 09:30] LABS: Creatinine MALB Rnd Ur 131 mg/dL (30-125); Microalbumin Creat Ratio 3 mg/gCrea (<30); Microalbumin, Random Urine 4 mg/L (0-300)
== END | disposition home or self-care (01) ==
LOC: COPL 07:02
PROVIDERS: PCP Family Medicine; Referring Provider Family Medicine; Visit Provider Family Medicine
DX: N42.9 Disorder of prostate, unspecified (principal); E11.65 Type 2 diabetes mellitus with hyperglycemia; E78.1 Pure hyperglyceridemia; E03.2 Hypothyroidism due to medicaments and other exogenous substances
CPT/HCPCS: 36415; 80053; 80061; 82043; 82570; 83036; 84153; 84439; 84443

== ENCOUNTER 2025-04-20 14:54 | Emergency (ER) | payer MEDICAID, SELFPAY ==
[2025-04-20 15:08] VITALS: BP 138/88; PULSE 73; RESP 18; TEMP 37; O2SAT 97; BMI 30.7
[2025-04-20 15:09] VITALS: PULSE 72; RESP 22; O2SAT 96; BMI 31.3
--- NOTE | 2025-04-20 15:45 | XR_ITS ---
Examination: CT abdomen and pelvis without contrast. Coronal 3-D reconstructions. Sagittal 2-D reconstructions. Date and time of exam:April 20, 2025 at 1701 hours INDICATIONS: Constipation no bowel movement and abdominal pain beginning 2 days ago, diffuse thickening of the rectal wall on CT pelvis February 17, 2025 CTDI: vol (mGy): 8.38 DLP: (mGycm): 528 Technique: Axial images of the abdomen have been obtained, 3 mm slice thickness Intravenous contrast material has not been administered. Low dose protocols were performed. One or more of the following dose reduction techniques were used; automated exposure control, adjustment of the mA and/or KV according to patient size, use of iterative reconstruction technique. Findings: No focal liver or splenic lesions Cholelithiasis. No pancreatic or adrenal mass. No renal or ureteral calculi, hydronephrosis Normal size. Normal appendix. No bowel obstruction. Diverticulosis, no diverticulitis Contracted urinary bladder Markedly abnormal rectum, marked wall thickening and prominent inflammatory change Fat-containing inguinal hernias Moderate osteopenia Impression :. Markedly abnormal rectum, diffuse extensive wall thickening and perirectal marked inflammatory change, differential would include proctitis, underlying rectal carcinoma not excluded, recommend direct inspection
--- NOTE | 2025-04-20 15:46 | PD.EDRME ---
Rapid Medical Screening Exam RME Arrival date/time: 04/20/25 14:54 69-year-old male presents to the Emergency Department for complaints of abdominal pain and constipation patient reports recent colonoscopy. Patient reports that he took a suppository prior to coming report symptoms have significantly improved but reports mild pain at this time Chief Complaint: Abdominal Pain Vital signs: Vital Signs Temperature 98.6 F 04/20/25 15:08 Pulse Rate 73 04/20/25 15:08 Respiratory Rate 18 04/20/25 15:08 Blood Pressure 138/88 H 04/20/25 15:08 Pulse Oximetry (%) 97 04/20/25 15:08 Oxygen Delivery Method Room Air 04/20/25 15:08
[2025-04-20 16:08] LABS: Collection Type, Urine Clean Catch
[2025-04-20 16:13] LABS: Basophils # (Auto) 0.1 Thou/mm3 (0.0-0.2); Basophils % (Auto) 1 % (0-2.5); Eosinophils # (Auto) 0.2 Thou/mm3 (0.0-0.5); Eosinophils % (Auto) 2 % (0-10); Hematocrit 41.1 % (41.0-53.0); Hemoglobin 14.1 g/dL (13.5-16.0); Immature Granulocytes Auto 0.05 Thou/mm3 (0.00-0.00); Lymphocytes # (Auto) 1.7 Thou/mm3 (1.0-4.8); Lymphocytes % (Auto) 16 % (10-50); Mean Corpuscular HGB Conc 34.3 g/dl (31.0-37.0); Mean Corpuscular Hemoglobin 31.2 pg (25.0-35.0); Mean Corpuscular Volume 91 fL (80-100); Monocytes # (Auto) 0.6 Thou/mm3 (0.0-0.8); Monocytes % (Auto) 6 % (0-12); Neutrophils # (Auto) 7.7 Thou/mm3 (1.8-7.7); Neutrophils % (Auto) 75 % (37-80); Nucleated Red Blood Cell # 0.00 Thou/mm3 (0.00-0.00); Nucleated Red Blood Cell % 0 /100 WBC (0); Platelet Count 247 Thou/mm3 (140-440); RDW Standard Deviation 44.2 fL (35.1-43.9); Red Blood Count 4.52 Miln/mm3 (4.50-5.90); White Blood Count 10.3 Thou/mm3 (3.8-10.6)
[2025-04-20 16:19] LABS: Bilirubin,Urine Negative (Negative); Blood,Urine Negative (Negative); Clarity,Urine Clear (Clear/Hazy); Color,Urine Yellow (Lt Yel-Yel); Culture Indicated,Urine Not Indicated; Glucose, Urine Trace (Negative); Ketones,Urine Negative (Negative); Leukocyte Esterase,Urine Negative (Negative); Nitrite,Urine Negative (Negative); PH,Urine 6.5 (5.0-7.0); Protein,Urine Trace (Neg - Trace); RBC,Urine 2 /hpf (0-3); Specific Gravity,Urine 1.027 (1.001-1.035); Squamous Epithelial Cell,Urine < 1 /hpf (0-5); Urobilinogen,Urine Negative mg/dL (0.0-1.0); WBC,Urine 1 /hpf (0-5)
[2025-04-20 16:30] LABS: Alanine Aminotransferase 27 U/L (10-49); Albumin, Serum 4.4 gm/dL (3.4-4.8); Albumin/Globulin Ratio 1.5 (1.2-2.2); Alkaline Phosphatase 92 U/L (46-116); Anion Gap 10 (7-16); Aspartate Amino Transferase 20 U/L (0-34); BUN/Creatinine Ratio 14 Ratio (12-20); Bilirubin,Total 1.0 mg/dL (0.3-1.2); Blood Urea Nitrogen 13 mg/dL (9-23); Calcium 9.1 mg/dL (8.3-10.6); Calcium (Corrected) 9.1 mg/dL (8.5-10.1); Carbon Dioxide 23.4 mMol/L (20.0-31.0); Chloride 107 mMol/L (98-107); Creatinine (Component) 0.9 mg/dL (0.6-1.3); Estimated Creatinine Clearance 85.6 mL/min (>60); Globulin 2.9 gm/dL (2.3-3.5); Glucose 113 mg/dL (74-106); Lipase 38 U/L (12-53); Osmolality,Calculated 280 (275-295); Potassium 4.0 mMol/L (3.4-5.1); Sodium 140 mMol/L (136-145); Total Protein 7.3 gm/dL (5.7-8.2); eGFR > 60 See Note
[2025-04-20 19:54] VITALS: BP 141/63; PULSE 64; RESP 18; TEMP 37.3; O2SAT 98
--- NOTE | 2025-04-20 20:36 | PD.EDABDPN ---
ED Abdominal Pain RME/HPI General Chief Complaint: Abdominal Pain Stated complaint: CONSTIPATION Arrival date/time: 04/20/25 14:54 Limitations: no limitations RME / HPI RME / HPI narrative: 04/20/25 14:54 69-year-old male presents to the Emergency Department for complaints of abdominal pain and constipation patient reports recent colonoscopy. Patient reports that he took a suppository prior to coming report symptoms have significantly improved but reports mild pain at this time -------- Dr. Pearson's Main ED Evaluation: 69yo male NARGIS from home presents to the ED for a chief complaint of constipation. Patient states his last bowel movement was 2 days ago, reporting he feels lower abdominal pressure when he needs to go. Patient states he felt generally weak and faint when trying to use the restroom, so he called 911 to come in for evaluation. Patient denies any N/V/D, fever, chills or any other associated symptoms. Patient had a bowel movement after arriving to the ED. Patient endorses having similar symptoms 1 month ago, was admitted at that time, and had a colonoscopy done. Related Data Home Medications ?Medication ?Instructions ?Recorded ?Confirmed enalapril maleate 2.5 mg tablet 2.5 mg PO AC 02/17/25 02/17/25 metformin 1,000 mg tablet 1,000 mg PO BID 02/17/25 02/17/25 simvastatin 20 mg tablet 20 mg PO DAILY 02/17/25 02/17/25 Previous Rx's ?Medication ?Instructions ?Recorded tramadol 50 mg tablet 50 mg PO BID PRN pain #6 tabs 02/20/25 polyethylene glycol 3350 17 gram 17 g PO QDAY #100 ea 04/20/25 oral powder packet (Miralax) Allergies Allergy/AdvReac Type Severity Reaction Status Date / Time No Known Allergies Allergy Verified 04/20/25 15:13 Review of Systems Review of Systems Systems Reviewed: All systems reviewed, normal except as documented Past Medical History Past Medical History NEUROLOGIC: Negative Seizures CARDIAC: Positive Hypercholesterolemia and Hypertension; Negative Congestive Heart Failure RESPIRATORY: Negative Chronic Obstructive Pulmonary Disease (COPD) GENITOURINARY: Negative Renal Disease ENDOCRINE: Negative Diabetes Mellitus Type 1 or Diabetes Mellitus Type 2 (PRE DIABETIC) OTHER HISTORY: Negative Blood Transfusions or Anesthesia Reactions Social History SMOKING STATUS: Never smoker ED Exam General Limitations: Present no limitations General appearance: Present alert and in no apparent distress Head Head exam: Present atraumatic Eye Eye exam: Present normal appearance, PERRL and EOMI ENT ENT exam: Present normal exam, normal oropharynx and mucous membranes moist Neck Neck exam: Present normal inspection, full ROM and trachea midline Chest Chest inspection: Present normal inspection and symmetric chest wall rise Respiratory Respiratory exam: Present normal lung sounds bilaterally Cardiovascular Cardiovascular exam: Present regular rate, normal rhythm and normal heart sounds Abdominal Exam Abdominal exam: Present soft and normal bowel sounds Extremities Exam Extremities exam: Present normal inspection and full ROM Back Exam Back exam: Present normal inspection and full ROM Neurological Exam Neurological exam: Present alert, oriented X3 and CN II-XII intact Psychiatric Psychiatric exam: Present normal affect and normal mood Skin Skin exam: Present warm, dry, intact and normal color Course Quality Measures none Orders Category Date Time Status CT abdomen pelvis wo con Stat Exams 04/20/25 15:45 Completed CBC Stat Lab 04/20/25 15:52 Completed Comprehensive Metabolic Panel Stat Lab 04/20/25 15:52 Completed Lipase Stat Lab 04/20/25 15:52 Completed UA, C/S IF [Urinalysis, C/S if Indicated] Stat Lab 04/20/25 16:00 Completed Vital Signs Vital signs: Vital Signs Temperature 98.6 F 04/20/25 15:08 Pulse Rate 73 04/20/25 15:08 Respiratory Rate 18 04/20/25 15:08 Blood Pressure 138/88 H 04/20/25 15:08 Pulse Oximetry (%) 97 04/20/25 15:08 Oxygen Delivery Method Room Air 04/20/25 15:08 Abdominal Pain MDM MDM Narrative [facility] Narrative:: Scribe Attestation: 04/20/25 Kasie Buckley am scribing for and in the presence of Dr. Pearson. Patient data External records reviewed:: [facility] previous records (Per chart review, patient was admitted here on 02/17/25 for a fever.) Clinical information provided by:: patient Social determinants that could affect healthcare access:: none Patient has the following chronic illnesses:: HTN, HLD How is presenting disease/condition affected by chronic disease/condition?: uneffected by Evaluation data The following diagnostics were reviewed and interpreted by me:: lab results and radiology exam(s) Lab and/or radiology exams considered but not ordered:: none Interpretation Summary: CBC normal, CMP normal, Lipase normal, UA unremarkable. -------- [facility] Report Signed Patient: MICK HAYNES Record#: [id number] Birthdate: 1955 Age/Sex: 69 / M Location: [facility] Attending Dr: Ordering Physician: Kaiser MACIAS),Pratik MORENO Date of Service: 04/20/25 Procedure(s): CT abdomen pelvis wo con Accession Number(s): [id number] cc: Kaiser MACIAS),Pratik MORENO; Agustin Helton MD; Deven Santillan MD~ Examination: CT abdomen and pelvis without contrast. Coronal 3-D reconstructions. Sagittal 2-D reconstructions. Date and time of exam:April 20, 2025 at 1701 hours INDICATIONS: Constipation no bowel movement and abdominal pain beginning 2 days ago, diffuse thickening of the rectal wall on CT pelvis February 17, 2025 CTDI: vol (mGy): 8.38 DLP: (mGycm): 528 Technique: Axial images of the abdomen have been obtained, 3 mm slice thickness Intravenous contrast material has not been administered. Low dose protocols were performed. One or more of the following dose reduction techniques were used; automated exposure control, adjustment of the mA and/or KV according to patient size, use of iterative reconstruction technique. Findings: No focal liver or splenic lesions Cholelithiasis. No pancreatic or adrenal mass. No renal or ureteral calculi, hydronephrosis Normal size. Normal appendix. No bowel obstruction. Diverticulosis, no diverticulitis Contracted urinary bladder Markedly abnormal rectum, marked wall thickening and prominent inflammatory change Fat-containing inguinal hernias Moderate osteopenia Impression :. Markedly abnormal rectum, diffuse extensive wall thickening and perirectal marked inflammatory change, differential would include proctitis, underlying rectal carcinoma not excluded, recommend direct inspection Dictated By: Agustin Helton MD Signed By: <Electronically signed by Agustin Helton MD in OV> 04/20/25 8473 Medications / Prescriptions Medications or Prescriptions considered but not ordered:: none Medication administrations:: see above, if any Consultations Consultation(s) initiated? (list below): No Diagnosis Differential diagnosis abdominal pain: constipation and other (abdominal pain, diverticulosis) Most likely diagnosis given after review of the tests above:: see clinical impression below Admission Indicated Admission indicated?: not indicated Admission Request Was there a request for admission?: No Disposition Plan Disposition Plan: Discharge Discharge Attestation Discharge Attestation: The patient and all family members were given an opportunity to ask questions and understood the discharge instructions. Discharge instructions specifically effects, indications for sooner follow up or return to the emergency department, and the expected course of current diagnosis. Patient condition: Stable Discharge Plan Plan Patient Disposition: HOME (Self Care) Patient condition on transfer: Stable Prescriptions/Referrals Prescriptions/Med Rec: New polyethylene glycol 3350 [Miralax] 17 gram powder in packet 17 g PO QDAY Qty: 100 0RF No Action simvastatin 20 mg tablet 20 mg PO DAILY Patient Comments: take 1 tablet by mouth at bedtime metformin 1,000 mg tablet 1,000 mg PO BID enalapril maleate 2.5 mg tablet 2.5 mg PO AC Patient Comments: take 1 tablet by mouth every morning tramadol 50 mg tablet 50 mg PO BID PRN (Reason: pain) Qty: 6 0RF Referrals: Deven Santillan MD [Primary Care Provider] - In 1 week Outpatient Orders: CBC (Routine) Location: None Selected Ordered By: Una Morales Problem List Clinical Impression: Abdominal pain Patient/Caregiver Discharge Instructions Education Materials: Abdominal Pain Additional Instructions: Please start MiraLAX 17 gm in 8 ounces and take it daily. Return to the ED for worsening symptoms, any bloody diarrhea, or any worsening symptoms. You have been seen by Dr. Reyes and have a negative colonoscopy in the past and at this time you have agreed that you do not want a rectal exam today. Please call Dr. Reyes's office to get a follow-up appointment, if needed Print Language: Pakistani Stand Alone Forms: Bridgett Award Info., Patient Portal Info Letter
[2025-04-20 20:52] VITALS: RESP 18
== END 2025-04-20 20:53 | disposition home or self-care (01) ==
PROVIDERS: Nurse Practitioner Primary Care; Emergency Provider Emergency Medicine; PCP Family Medicine
DX: R10.9 Unspecified abdominal pain (principal); K62.89 Other specified diseases of anus and rectum
CPT/HCPCS: 36415; 74176; 80053; 81001; 83690; 85025; 99283